=== PATIENT | female | born 1935 | race Caucasian/White ===

== ENCOUNTER 2017-11-07 08:51 | Emergency (ER) | payer OTHER, BC ==
--- NOTE | 2017-11-07 10:52 | ER ---
Nurse's Notes [facility] Name: Shelley Connor Age: 82 yrs Sex: Female : 1935 Arrival Date: 11/07/2017 Time: 08:55 Bed 14 Private MD: Иван James T Diagnosis: Contusion of left foot Presentation: 11/07 09:11 Presenting complaint: Patient states: left foot swelling and pain x 10 days. Pt reports sv pain started after getting a new recliner and having to push down the foot part down so many times. Transition of care: patient was not received from another setting of care. Onset of symptoms was October 28, 2017. Risk Assessment: Do you want to hurt yourself or someone else? Patient reports no desire to harm self or others. Care prior to arrival: None. 09:11 Method Of Arrival: Ambulatory sv 09:11 Acuity: YANIRA 4 sv 09:20 Initial Sepsis Screen: Does the patient meet any 2 criteria? No. Patient's initial rb1 sepsis screen is negative. Does the patient have a suspected source of infection? No. Patient's initial sepsis screen is negative. Triage Assessment: 09:11 General: Appears in no apparent distress. comfortable, Behavior is calm, cooperative, sv appropriate for age. Pain: Complains of pain in left foot Pain currently is 7 out of 10 on a pain scale. Pain began 10 days ago. EENT: No signs and/or symptoms were reported regarding the EENT system. Neuro: Level of Consciousness is awake, alert, obeys commands, Oriented to person, place, time, situation, Moves all extremities. Full function Gait is steady. Respiratory: Respiratory effort is even, unlabored, Respiratory pattern is regular, symmetrical. GI: No signs and/or symptoms were reported involving the gastrointestinal system. : No signs and/or symptoms were reported regarding the genitourinary system. Derm: Skin is normal. Musculoskeletal: Range of motion: intact in all extremities, Reports pain in left foot. Historical: - Allergies: : No Known Allergies; sv - Home Meds: : metoprolol succinate 25 mg oral Tb24 1 tab once daily [Active]; Bumetanide 10 mg daily sv Oral [Active]; Xarelto 20 mg oral tab 1 tab once daily [Active]; lovastatin 20 mg Oral tab 1 tab once daily [Active]; fenofibrate oral 145 mg daily oral [Active]; Synthroid 75 mcg Oral tab 1 tab once daily [Active]; - PMHx: 09:23 Hypertension; LLE DVT; sv - PSHx: :23 garfield filter in left leg; sv - Immunization history:: Adult Immunizations up to date. - Social history:: Smoking status: Patient/guardian denies using tobacco. - Ebola Screening: : No symptoms or risks identified at this time. Screenin:20 Abuse screen: Denies threats or abuse. Nutritional screening: No deficits noted. rb1 Tuberculosis screening: No symptoms or risk factors identified. Fall Risk None identified. Assessment: 09:20 General: Appears in no apparent distress. comfortable, Behavior is calm, cooperative. rb1 09:20 Pain: Complains of pain in left foot Pain currently is 5 out of 10 on a pain scale. rb1 Pain began x 10 days Aggravated by weight bearing. Neuro: Level of Consciousness is awake, alert, obeys commands, Oriented to person, place, time, situation. Cardiovascular: Capillary refill < 3 seconds is brisk in bilateral fingers. Respiratory: Airway is patent Respiratory effort is even, unlabored, Respiratory pattern is regular, symmetrical. GI: No signs and/or symptoms were reported involving the gastrointestinal system. : No signs and/or symptoms were reported regarding the genitourinary system. Derm: Skin is pink, warm \T\ dry. Musculoskeletal: Swelling present in left foot. 10:03 Reassessment: Patient appears in no apparent distress at this time. No changes from rb1 previously documented assessment. Daughter at bedside. 10:33 Reassessment: pt. ambulated to the restroom without difficulty. rb1 11:00 Reassessment: Patient appears in no apparent distress at this time. Patient and/or rb1 family updated on plan of care and expected duration. Pain level reassessed. Patient is alert, oriented x 3, equal unlabored respirations, skin warm/dry/pink. Vital Signs: 09:11 BP 175 / 87; Pulse 71; Resp 18; Temp 97.9; Pulse Ox 99% ; Weight 58.97 kg; Height 5 ft. sv 2 in. (157.48 cm); Pain 7/10; 10:03 BP 159 / 81; Pulse 65; Resp 17; Pulse Ox 95% on R/A; rb1 11:00 BP 162 / 83; Pulse 62; Resp 19; Pulse Ox 98% on R/A; rb1 09:11 Body Mass Index 23.78 (58.97 kg, 157.48 cm) ED Course: 08:55 Patient arrived in ED. rg4 08:55 Иван James MD is Private Physician. rg4 09:11 Arm band placed on right wrist. Patient placed in an exam room, on a stretcher. sv 09:20 Patient has correct armband on for positive identification. Bed in low position. Call rb1 light in reach. Side rails up X 1. Pulse ox on. NIBP on. Warm blanket given. 09:21 Triage completed. sv 09:27 Mae Martines, RN is Primary Nurse. rb1 09:27 Gael Swain PA is PHCP. jr8 09:27 Marck Rodriguez MD is Attending Physician. jr8 10:52 Chong Brantley DPM is Referral Physician. jr8 10:54 XRAY Foot LEFT 3 View In Process Unspecified. EDMS 11:05 No provider procedures requiring assistance completed. Patient did not have IV access rb1 during this emergency room visit. Administered Medications: No medications were administered Output: 10:33 Urine: 1ml (Voided); Total: 1ml. rb1 Outcome: 10:52 Discharge ordered by . jr8 11:05 Discharged to home ambulatory, with family. rb1 11:05 Condition: stable 11:05 Discharge instructions given to patient, Instructed on discharge instructions, follow up and referral plans. Demonstrated understanding of instructions, follow-up care, Prescriptions given X none 11:07 Patient left the ED. rb1 Signatures: Dispatcher [employer] EDMS Asha Blandon, RN RN Gael Swain PA PA jr8 Mae Martines, RN RN rb1 Surekha Diaz rg4
--- NOTE | 2017-11-07 10:52 | EDPHYS ---
Physician Documentation [facility] Name: Shelley Connor Age: 82 yrs Sex: Female : 1935 Arrival Date: 11/07/2017 Time: 08:55 Bed 14 Private MD: Иван James T ED Physician Marck Rodriguez HPI: 11/07 10:22 This 82 yrs old Female presents to ER via Ambulatory with complaints of Foot jr8 pain. 10:22 The patient presents with pain, swelling, tenderness. The complaints affect the left jr8 foot. Onset: The symptoms/episode began/occurred gradually, 1 week(s) ago. Modifying factors: The symptoms are alleviated by nothing, the symptoms are aggravated by movement. Associated signs and symptoms: The patient has no apparent associated signs or symptoms. Severity of symptoms: At their worst the symptoms were mild, in the emergency department the symptoms are unchanged. The patient has not experienced similar symptoms in the past. The patient has not recently seen a physician. Patient stated that she was trying to get out of recliner. Was pushing down on seat and could not get it down. Was straining with her feet to push the seat down. Since then has had left foot pain. Has not gone away after 1 week . Historical: - Allergies: 09:23 No Known Allergies; sv - Home Meds: 09:23 metoprolol succinate 25 mg oral Tb24 1 tab once daily [Active]; Bumetanide 10 mg daily sv Oral [Active]; Xarelto 20 mg oral tab 1 tab once daily [Active]; lovastatin 20 mg Oral tab 1 tab once daily [Active]; fenofibrate oral 145 mg daily oral [Active]; Synthroid 75 mcg Oral tab 1 tab once daily [Active]; - PMHx: 09:23 Hypertension; LLE DVT; sv - PSHx: 09:23 garfield filter in left leg; sv - Immunization history:: Adult Immunizations up to date. - Social history:: Smoking status: Patient/guardian denies using tobacco. - Ebola Screening: : No symptoms or risks identified at this time. ROS: 10:22 Eyes: Negative for injury, pain, redness, and discharge, ENT: Negative for injury, jr8 pain, and discharge, Neck: Negative for injury, pain, and swelling, Cardiovascular: Negative for chest pain, palpitations, and edema, Respiratory: Negative for shortness of breath, cough, wheezing, and pleuritic chest pain, Abdomen/GI: Negative for abdominal pain, nausea, vomiting, diarrhea, and constipation, Back: Negative for injury and pain, Skin: Negative for injury, rash, and discoloration, Neuro: Negative for headache, weakness, numbness, tingling, and seizure. 10:22 MS/extremity: Positive for pain, swelling, tenderness, of the left foot. Exam: 10:22 Cardiovascular: Regular rate and rhythm with a normal S1 and S2. No gallops, murmurs, jr8 or rubs. Normal PMI, no JVD. No pulse deficits. Respiratory: Lungs have equal breath sounds bilaterally, clear to auscultation and percussion. No rales, rhonchi or wheezes noted. No increased work of breathing, no retractions or nasal flaring. Skin: Warm, dry with normal turgor. Normal color with no rashes, no lesions, and no evidence of cellulitis. Neuro: Awake and alert, GCS 15, oriented to person, place, time, and situation. Cranial nerves II-XII grossly intact. Motor strength 5/5 in all extremities. Sensory grossly intact. Cerebellar exam normal. Normal gait. 10:22 Musculoskeletal/extremity: Extremities: grossly normal except: noted in the left foot: Pain and tenderness to dorsum of foot. Mild swelling. , ROM: intact in all extremities, Circulation is intact in all extremities. Sensation intact. Vital Signs: 09:11 BP 175 / 87; Pulse 71; Resp 18; Temp 97.9; Pulse Ox 99% ; Weight 58.97 kg; Height 5 ft. sv 2 in. (157.48 cm); Pain 7/10; 10:03 BP 159 / 81; Pulse 65; Resp 17; Pulse Ox 95% on R/A; rb1 11:00 BP 162 / 83; Pulse 62; Resp 19; Pulse Ox 98% on R/A; rb1 09:11 Body Mass Index 23.78 (58.97 kg, 157.48 cm) sv MDM: 09:27 Patient medically screened. jr8 10:51 Data reviewed: vital signs, nurses notes, radiologic studies, plain films, and as a jr8 result, I will discharge patient. Data interpreted: Pulse oximetry: on room air is 95 %. Interpretation: normal. Counseling: I had a detailed discussion with the patient and/or guardian regarding: the historical points, exam findings, and any diagnostic results supporting the discharge/admit diagnosis, radiology results, the need for outpatient follow up, a ekg monitor tech, to return to the emergency department if symptoms worsen or persist or if there are any questions or concerns that arise at home. 11/07 09:50 Order name: XRAY Foot LEFT 3 View jr8 Administered Medications: No medications were administered Disposition: 11/08 06:46 Co-signature as Attending Physician, Marck Rodriguez MD I agree with the assessment and nicholas plan of care. PA/BLENDER LABORER's history reviewed, patient interviewed, and examined. Disposition: 11/07/17 10:52 Discharged to Home. Impression: Contusion of left foot. - Condition is Stable. - Discharge Instructions: Foot Contusion. - Medication Reconciliation Form, Thank You Letter, Antibiotic Education, Prescription Opioid Use form. - Follow up: Chong Brantley DPM; When: 1 week; Reason: Recheck today's complaints, Continuance of care, Re-evaluation by your physician. - Problem is new. - Symptoms have improved. Signatures: Dispatcher [employer] EDAsha Petty, RN RN Marck Ewing MD MD cha Roszak, Josh, PA PA jr8 Mae Martines, RN RN rb1 Corrections: (The following items were deleted from the chart) 11/07 11:07 10:52 11/07/2017 10:52 Discharged to Home. Impression: Contusion of left foot. rb1 Condition is Stable. Forms are Medication Reconciliation Form, Thank You Letter, Antibiotic Education, Prescription Opioid Use. Follow up: Chong Brantley; When: 1 week; Reason: Recheck today's complaints, Continuance of care, Re-evaluation by your physician. Problem is new. Symptoms have improved. jr8
--- NOTE | 2017-11-07 11:13 | RAD REPORT ---
EXAM DESCRIPTION: RAD - Foot Left 3 View - 11/07/2017 10:54 am CLINICAL HISTORY: Left foot pain and swelling for 10 days, patient reports foot pain following repet itive activity COMPARISON: None. FINDINGS: No fracture, dislocation or periosteal reaction. No acute or destructive bony process. IP joint space narrowing without erosive or destructive component. Minimal fifth MTP joint space narrow ing. Patient has mild to moderate first MTP joint space narrowing without spurring or erosive compone nt. There is a mild bunion deformity. No air or foreign body in the soft tissues. IMPRESSION: Degenerative changes are present to the foot. Change is not severe but most notable at t he first MTP joint.
== END 2017-11-07 11:07 | disposition home or self-care (01) ==
LOC: ER 08:51
DX: S90.32XA Contusion of left foot, initial encounter (principal); I10 Essential (primary) hypertension; X58.XXXA Exposure to other specified factors, initial encounter; Y93.89 Activity, other specified; Y92.89 Other specified places as the place of occurrence of the external cause; Y99.9 Unspecified external cause status; Z86.718 Personal history of other venous thrombosis and embolism
CPT/HCPCS: 99283

== ENCOUNTER → 2023-08-09 | Emergency (ER) | payer BC, OTHER ==
[~2023-08-09] MED LIST: CEFTRIAXONE 1000 MG/VIAL ONE; CIPROFLOXACIN HCL 500 MG TAB ONE; DIAZEPAM 5 MG TABLET ONE; FENTANYL CITR 100 MCG/2 ML ONE; NA CHLORIDE 0.9% 500 ML ONE; ONDANSETRON 4 MG/2 ML VIAL ONE; SMZ./TMP. 800/160 MG TABLET ONE; dexAMETHasone 10 MG/ML VIAL ONE
[2023-08-09 11:12] LABS: Absolute Basophils 0.1 K/uL (0-0.5); Absolute Eosinophils 0.3 K/uL (0-0.5); Absolute Lymphocytes (CBC) 1.4 K/uL (0.7-4.9); Absolute Monocytes 0.6 K/uL (0.1-1.3); Basophils % 0.8 % (0-1.3); Eosinophils % 3.2 % (0-4.4); Hematocrit 39.1 % (36.0-45.0); Hemoglobin 12.9 g/dL (12.0-15.0); Lymphocytes % 16.5 % (15.3-44.8); MCH 30.9 pg (27.0-35.0); MCHC 33.1 g/dL (32.0-36.0); MCV 93.2 fL (80-100); MPV 7.9 fL (7.6-11.3); Neutrophils % 72.5 % (41.7-73.7); Platelets 404 thou/uL (152-406); Red Cell Distribution Width 14.2 % (12.1-15.2)
[2023-08-09 11:22] LABS: Albumin 3.6 g/dL (3.4-5.0); Albumin/Globulin Ratio 0.8 (1.1-1.8); Anion Gap 8.9 mEq/L (5.0-15.0); Bilirubin Total 0.5 mg/dL (0.2-1.0); Globulin 4.7 g/dL (2.3-3.5); Potassium 3.9 mEq/L (3.5-5.1); Protein, Total 8.3 g/dL (6.4-8.2)
[2023-08-09 13:28] LABS: Specific Gravity 1.013 (1.005-1.030); Sqamous Epithelial <5 /HPF (None Seen); Urine Bacteria None Seen /HPF (<20); Urine Bilirubin NEGATIVE (Negative); Urine Blood Negative (Negative); Urine Clarity Extremely Turbid (Clear); Urine Color Light-Yellow (Yellow); Urine Culture Reflex Order NOT NEEDED; Urine Glucose NEGATIVE (Negative); Urine Ketones NEGATIVE (Negative); Urine Microscopic Reflex YN ORDER UMIC; Urine Mucus Slight /HPF (None Seen); Urine Nitrite NEGATIVE (Negative); Urine Protein NEGATIVE (Negative); Urine RBC <5 /HPF (None Seen); Urine Urobilinogen Normal (Normal); Urine WBC <5 /HPF (<5)
--- NOTE | 2023-08-09 13:41 | RAD REPORT ---
EXAM DESCRIPTION: CT - Chest Abdomen Pelvis W Cont - 08/09/2023 1:16 pm CLINICAL HISTORY: Chest and abdominal pain status post fall Chest and abdominal pain. Back pain COMPARISON: none TECHNIQUE: Computed axial tomography of the chest, abdomen and pelvis was obtained. 100 cc Isovue-30 0 was administered intravenously. Oral contrast was not requested. This limits evaluation of bowel. All CT scans are performed using dose optimization technique as appropriate and may include automated exposure control or mA/KV adjustment according to patient size. FINDINGS: A pleural effusion is not present. No pericardial effusion A pulmonary contusion is not seen. Mild chronic appearing bibasilar lung opacities. Calcified granuloma right lung. A mediastinal hematoma is not present. The liver, spleen, pancreas, adrenals kidneys and bladder do not demonstrate a traumatic injury 2.3 centimeter right adrenal mass Hounsfield unit 46. A 2.6 centimeter cystic mass pancreatic body IVC filter in place Mild insufficiency sacral fractures Air within the bladder. small right diaphragmatic hernia IMPRESSION: No acute traumatic injury involving the chest, abdomen nor pelvis is seen. 2.3 centimeter right adrenal mass. Nonemergent MRI recommended to help determine if this represents a n adenoma 2.6 centimeter cystic mass pancreatic body may represent intraductal papillary mucinous neoplasm or p seudocyst. Nonemergent MRI recommended Mild insufficiency sacral fractures Air within the bladder may be secondary to prior instrumentation or infection
--- NOTE | 2023-08-09 14:43 | ER ---
Nurse's Notes [facility] Name: Shelley Connor Age: 87 yrs Sex: Female : 1935 Arrival Date: 08/09/2023 Time: 09:33 Bed 12 Private MD: Diagnosis: Low back pain;Sciatica;UTI/ Urinary tract infection, site not specified;Abnormal findings on diagnostic imaging of other specified body structures-2.3 cm right adrenal mass, 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;Fracture of sacrum-MILD INSUFFIENT FRACTURES Presentation: 08/08 10:15 Chief complaint: [place] and heard a pop in lower back when she bent over 9 days ago, c/o hb low back pain 02/21. Coronavirus screen: At this time, the client does not indicate any symptoms associated with coronavirus-19. Ebola Screen: No symptoms or risks identified at this time. Initial Sepsis Screen: Does the patient meet any 2 criteria? No. Patient's initial sepsis screen is negative. Does the patient have a suspected source of infection? No. Patient's initial sepsis screen is negative. Risk Assessment: Do you want to hurt yourself or someone else? Patient reports no desire to harm self or others. Onset of symptoms was July 31, 2023. 10:15 Method Of Arrival: Wheelchair hb 10:15 Acuity: YANIRA 3 hb Triage Assessment: 10:20 General: Appears in no apparent distress. Behavior is calm, cooperative. Pain: Pain hb currently is 10 out of 10 on a pain scale. Neuro: Level of Consciousness is awake, alert, obeys commands, Oriented to person, place, time, situation. Cardiovascular: Patient's skin is warm and dry. Respiratory: Respiratory effort is even, unlabored, Respiratory pattern is regular, symmetrical. Musculoskeletal: Reports low back pain 02/21. Historical: - Allergies: 10:17 No Known Allergies; hb - Home Meds: 10:17 Xarelto 20 mg Oral tab 1 tab once daily [Active]; Synthroid 75 mcg Oral tab 1 tab once hb daily [Active]; metoprolol succinate 25 mg Oral Tb24 1 tab once daily [Active]; lovastatin 20 mg Oral tab 1 tab once daily [Active]; fenofibrate 145 mg daily Oral [Active]; Bumetanide 10 mg daily Oral [Active]; Ambien Oral [Active]; - PMHx: 10:17 Hypertension; LLE DVT; hb - PSHx: 10:17 Wrist - Right; Hysterectomy; Appendectomy; hb - Immunization history:: Client reports receiving the 2nd dose of the Covid vaccine, Flu vaccine is up to date. - Social history:: Smoking status: Patient denies any tobacco usage or history of. Screenin:44 [facility] ED Fall Risk Assessment (Adult) History of falling in the last 3 months, jl7 including since admission Yes- single mechanical fall (1 pt) Confusion or Disorientation No (0 pts) Intoxicated or Sedated No (0 pts) Impaired Gait No (0 pts) Mobility Assist Device Used Yes (1 pt) Altered Elimination No (0 pt) Score/Fall Risk Level 0 - 2 = Low Risk Oriented to surroundings, Maintained a safe environment, Assessed \T\ reinforced patient's understanding of fall precautions, Hourly rounding (assess needs \T\ fall precautionary measures) done. Abuse screen: Denies threats or abuse. Denies injuries from another. Nutritional screening: No deficits noted. Tuberculosis screening: No symptoms or risk factors identified. Assessment: 11:30 General: Appears in no apparent distress. uncomfortable, Behavior is calm, cooperative, jl7 appropriate for age. Pain: Complains of pain in low back area Pain currently is 20 out of 10 on a pain scale. Pain began Is continuous. Neuro: Level of Consciousness is awake, alert, obeys commands, Oriented to person, place, time, situation. Cardiovascular: Patient's skin is warm and dry. Respiratory: Airway is patent Respiratory effort is even, unlabored, Respiratory pattern is regular, symmetrical. Derm: Skin is pink, warm \T\ dry. Musculoskeletal: Swelling absent Reports pain in low back area. 12:15 Reassessment: Report given to KESHIA Villavicencio. jl7 13:14 General: Appears uncomfortable, well groomed, well developed, well nourished, Behavior me1 is calm, cooperative, appropriate for age, Reports bent over and felt and heard a pop in her back 9 days ago. Has had pain since. Pain: Complains of pain in back Pain does not radiate. Pain currently is 8 out of 10 on a pain scale. Quality of pain is described as aching, sharp, Pain began suddenly, Is continuous. Neuro: Level of Consciousness is awake, alert, obeys commands, Oriented to person, place, time, situation, Appropriate for age. Cardiovascular: Patient's skin is warm and dry. Respiratory: Airway is patent Respiratory effort is even, unlabored, Respiratory pattern is regular, symmetrical. GI: No deficits noted. : No deficits noted. EENT: No deficits noted. Derm: Skin is intact, is healthy with good turgor, Skin is pink, warm \T\ dry. Musculoskeletal: Reports pain in back. Vital Signs: 10:15 BP 167 / 98; Pulse 83; Resp 16; Temp 97.1(TE); Pulse Ox 100% on R/A; Weight 54.43 kg; hb Height 5 ft. 2 in. ; Pain 10/10; 11:42 BP 178 / 85; Pulse 85; Resp 15; Pulse Ox 100% ; Pain 10/10; jl7 13:00 BP 165 / 78; Pulse 84; Resp 16; Pulse Ox 100% on R/A; Pain 6/10; me1 13:00 BP 149 / 68; Pulse 71; Resp 14; Temp 98.5(O); Pulse Ox 100% ; Pain 3/10; me1 10:15 Body Mass Index 21.95 (54.43 kg, 157.48 cm) hb 10:15 Pain Scale: Adult hb 11:42 Pain Scale: Adult jl7 13:00 Pain Scale: Adult me1 13:00 Pain Scale: Adult me1 [place] Coma Score: 14:29 Eye Response: spontaneous(4). Motor Response: obeys commands(6). Verbal Response: nicholas oriented(5). Total: 15. ED Course: 09:35 Patient arrived in ED. rg4 09:56 Marck Rodriguez MD is Attending Physician. nicholas 10:17 Triage completed. hb 10:20 Arm band placed on. hb 11:00 Initial lab(s) drawn, by ED staff, sent to lab. Inserted saline lock: 20 gauge in right jl7 antecubital area, using aseptic technique. Blood collected. 11:44 Patient has correct armband on for positive identification. Bed in low position. Call jl7 light in reach. Side rails up X2. Provided Education on: use of callbell. Pulse ox on. NIBP on. Warm blanket given. 11:52 Maye Chiu RN is Primary Nurse. me1 13:12 Urinalysis w/ reflexes Sent. me1 13:16 No provider procedures requiring assistance completed. me1 13:18 Chest Abdomen Pelvis W Cont In Process Unspecified. EDMS 15:44 IV discontinued, intact, bleeding controlled, No redness/swelling at site. Pressure me1 dressing applied. Administered Medications: 11:41 Drug: fentaNYL (PF) IVP 25 mcg IVP once Route: IVP; Site: right antecubital; 7 13:13 Follow up: Response: No adverse reaction; Pain is decreased me1 11:41 Drug: Ondansetron IVP 4 mg IVP once; over 2 minutes Route: IVP; Site: right antecubital;7 13:12 Follow up: Response: No adverse reaction; Nausea is decreased me1 11:41 Drug: Decadron - Dexamethasone IVP 10 mg IVP once Route: IVP; Site: right antecubital; 7 13:12 Follow up: Response: No adverse reaction me1 11:42 Drug: NS 0.9% IV 500 ml IV at bolus once Route: IV; Rate: bolus; Site: right jl7 antecubital; 15:45 Follow up: Response: No adverse reaction; IV Status: Completed infusion; IV Intake: me1 500ml 11:42 Drug: Diazepam PO 10 mg PO once Route: PO; 7 13:13 Follow up: Response: Anxiety decreased me1 14:42 Drug: fentaNYL (PF) IVP 25 mcg IVP once Route: IVP; Site: right antecubital; me1 15:01 Follow up: Response: No adverse reaction; Pain is decreased me1 14:42 Drug: Rocephin IV 1 grams IV at per protocol once; Given slow IV push per pharmacy me1 instructions Route: IV; Rate: per protocol; Site: right antecubital; 15:01 Follow up: Response: No adverse reaction; IV Status: Completed infusion me1 14:42 Drug: Trimethoprim-Sulfamethoxazole PO (160 mg-800 mg (DS) 1 tablet PO once Route: PO; me1 15:01 Follow up: Response: No adverse reaction me1 15:01 Follow up: Response: No adverse reaction me1 14:42 Drug: Ciprofloxacin PO 250 mg PO once Route: PO; me1 15:01 Follow up: Response: No adverse reaction me1 15:00 Not Given (pain well managed with previous dose.): fentanyl (pf)25 mcg IVP once me1 Medication: 11:44 VIS not applicable for this client. jl7 Intake: 15:45 IV: 500ml; Total: 500ml. me1 Outcome: 14:42 Discharge ordered by . nicholas 15:44 Discharged to home via wheelchair, with family, me1 15:44 Condition: stable 15:44 Discharge instructions given to patient, family, Instructed on discharge instructions, follow up and referral plans. medication usage, Demonstrated understanding of instructions, follow-up care, medications, Prescriptions given X 5 15:45 Patient left the ED. me1 Signatures: Dispatcher [employer] EDMarck Manning MD MD cha Baxter, Heather, RN RN Surekha Monet rg4 Elvia Woodard RN RN jl7 Maye Chiu RN RN me1 Corrections: (The following items were deleted from the chart) 10:20 10:17 PSHx: appendix; [facility] 08/09 10:08 03 11:30 Pain: Complains of pain in low back area Pain currently is 20 out of 10 on jl7 a pain scale. Pain began 2-3 days ago. Is continuous, jl7
--- NOTE | 2023-08-09 14:43 | EDPHYS ---
Physician Documentation [facility] Name: Shelley Connor Age: 87 yrs Sex: Female : 1935 Arrival Date: 08/09/2023 Time: 09:33 Bed 12 Private MD: FITZ Physician Marck Rodriguez HPI: 08/08 14:29 This 87 yrs old Female presents to ER via Wheelchair with complaints of Back Pain, Leg nicholas Pain. 14:29 The patient presents with pain that is acute. The symptoms are located in the low back. nicholas Onset: The symptoms/episode began/occurred 1 week(s) ago. The pain radiates to the left low back and right low back. Associated signs and symptoms: Pertinent positives: leg pain. The problem was sustained when bending over. Modifying factors: The patient symptoms are alleviated by nothing, remaining still, the patient symptoms are aggravated by any movement, bending. Severity of symptoms: At their worst the symptoms were mild, in the emergency department the symptoms are unchanged. The patient has experienced similar episodes in the past, a few times. Historical: - Allergies: 10:17 No Known Allergies; hb - Home Meds: 10:17 Xarelto 20 mg Oral tab 1 tab once daily [Active]; Synthroid 75 mcg Oral tab 1 tab once hb daily [Active]; metoprolol succinate 25 mg Oral Tb24 1 tab once daily [Active]; lovastatin 20 mg Oral tab 1 tab once daily [Active]; fenofibrate 145 mg daily Oral [Active]; Bumetanide 10 mg daily Oral [Active]; Ambien Oral [Active]; - PMHx: 10:17 Hypertension; LLE DVT; hb - PSHx: 10:17 Wrist - Right; Hysterectomy; Appendectomy; hb - Immunization history:: Client reports receiving the 2nd dose of the Covid vaccine, Flu vaccine is up to date. - Social history:: Smoking status: Patient denies any tobacco usage or history of. ROS: 14:29 Constitutional: Negative for fever, chills, and weight loss, Eyes: Negative for injury, nicholas pain, redness, and discharge, ENT: Negative for injury, pain, and discharge, Neck: Negative for injury, pain, and swelling, Cardiovascular: Negative for chest pain, palpitations, and edema, Respiratory: Negative for shortness of breath, cough, wheezing, and pleuritic chest pain, Abdomen/GI: Negative for abdominal pain, nausea, vomiting, diarrhea, and constipation, : Negative for injury, bleeding, discharge, and swelling, MS/Extremity: Negative for injury and deformity, Skin: Negative for injury, rash, and discoloration, Neuro: Negative for headache, weakness, numbness, tingling, and seizure, Psych: Negative for depression, anxiety, suicide ideation, homicidal ideation, and hallucinations, Allergy/Immunology: Negative for hives, rash, and allergies, Endocrine: Negative for neck swelling, polydipsia, polyuria, polyphagia, and marked weight changes, Hematologic/Lymphatic: Negative for swollen nodes, abnormal bleeding, and unusual bruising, 14:29 Back: Positive for injury or acute deformity, decreased range of motion, pain at rest, pain with movement, Exam: 14:29 Constitutional: This is a well developed, well nourished patient who is awake, alert, nicholas and in no acute distress. Head/Face: Normocephalic, atraumatic. Eyes: Pupils equal round and reactive to light, extra-ocular motions intact. Lids and lashes normal. Conjunctiva and sclera are non-icteric and not injected. Cornea within normal limits. Periorbital areas with no swelling, redness, or edema. ENT: Nares patent. No nasal discharge, no septal abnormalities noted. Tympanic membranes are normal and external auditory canals are clear. Oropharynx with no redness, swelling, or masses, exudates, or evidence of obstruction, uvula midline. Mucous membranes moist. Neck: Trachea midline, no thyromegaly or masses palpated, and no cervical lymphadenopathy. Supple, full range of motion without nuchal rigidity, or vertebral point tenderness. No Meningismus. Chest/axilla: Normal chest wall appearance and motion. Nontender with no deformity. No lesions are appreciated. Cardiovascular: Regular rate and rhythm with a normal S1 and S2. No gallops, murmurs, or rubs. Normal PMI, no JVD. No pulse deficits. Respiratory: Lungs have equal breath sounds bilaterally, clear to auscultation and percussion. No rales, rhonchi or wheezes noted. No increased work of breathing, no retractions or nasal flaring. Abdomen/GI: Soft, non-tender, with normal bowel sounds. No distension or tympany. No guarding or rebound. No evidence of tenderness throughout. Female : Normal external genitalia. Skin: Warm, dry with normal turgor. Normal color with no rashes, no lesions, and no evidence of cellulitis. MS/ Extremity: Pulses equal, no cyanosis. Neurovascular intact. Full, normal range of motion. Neuro: Awake and alert, GCS 15, oriented to person, place, time, and situation. Cranial nerves II-XII grossly intact. Motor strength 5/5 in all extremities. Sensory grossly intact. Cerebellar exam normal. Normal gait. Psych: Awake, alert, with orientation to person, place and time. Behavior, mood, and affect are within normal limits. 14:29 Back: pain, that is moderate, ROM is normal, normal spinal alignment noted, CVA tenderness, is absent, muscle spasm, is appreciated in the left low back, left mid back, right mid back and right low back, Vital Signs: 10:15 BP 167 / 98; Pulse 83; Resp 16; Temp 97.1(TE); Pulse Ox 100% on R/A; Weight 54.43 kg; hb Height 5 ft. 2 in. ; Pain 10/10; 11:42 BP 178 / 85; Pulse 85; Resp 15; Pulse Ox 100% ; Pain 10/10; jl7 13:00 BP 165 / 78; Pulse 84; Resp 16; Pulse Ox 100% on R/A; Pain 6/10; me1 13:00 BP 149 / 68; Pulse 71; Resp 14; Temp 98.5(O); Pulse Ox 100% ; Pain 3/10; me1 10:15 Body Mass Index 21.95 (54.43 kg, 157.48 cm) hb 10:15 Pain Scale: Adult hb 11:42 Pain Scale: Adult jl7 13:00 Pain Scale: Adult me1 13:00 Pain Scale: Adult me1 Ro Coma Score: 14:29 Eye Response: spontaneous(4). Motor Response: obeys commands(6). Verbal Response: nicholas oriented(5). Total: 15. MDM: 09:56 Patient medically screened. nicholas 14:35 Differential diagnosis: chronic back pain, Fatigue Fracture Joint Injury Obesity nicholas ruptured disc, spinal injury, Ureterolithiasis vertebral fracture. Data reviewed: vital signs, nurses notes, lab test result(s), radiologic studies, CT scan, plain films. Consideration of Admission/Observation Escalation of care including admission/observation considered. I considered the following discharge prescriptions or medication management in the emergency department Medications were administered in the Emergency Department. See MAR. Independent interpretation of the following test(s) in the Emergency Department CT Scan: My interpretation is ct lumbar. Test considered but Not performed: MRI: no spinal mri. 08/08 10:28 Order name: CBC with Diff; Complete Time: 13:56 [facility] 08/08 10:28 Order name: Comprehensive Metabolic Panel; Complete Time: 13:56 [facility] 08/08 10:28 Order name: Urinalysis w/ reflexes; Complete Time: 13:56 [facility] 08/08 13:58 Order name: Urine Culture [facility] 08/08 13:05 Order name: Chest Abdomen Pelvis W Cont; Complete Time: 13:56 EDMS Administered Medications: 11:41 Drug: fentaNYL (PF) IVP 25 mcg IVP once Route: IVP; Site: right antecubital; jl7 13:13 Follow up: Response: No adverse reaction; Pain is decreased me1 11:41 Drug: Ondansetron IVP 4 mg IVP once; over 2 minutes Route: IVP; Site: right antecubital;jl7 13:12 Follow up: Response: No adverse reaction; Nausea is decreased me1 11:41 Drug: Decadron - Dexamethasone IVP 10 mg IVP once Route: IVP; Site: right antecubital; jl7 13:12 Follow up: Response: No adverse reaction me1 11:42 Drug: NS 0.9% IV 500 ml IV at bolus once Route: IV; Rate: bolus; Site: right jl7 antecubital; 15:45 Follow up: Response: No adverse reaction; IV Status: Completed infusion; IV Intake: me1 500ml 11:42 Drug: Diazepam PO 10 mg PO once Route: PO; jl7 13:13 Follow up: Response: Anxiety decreased me1 14:42 Drug: fentaNYL (PF) IVP 25 mcg IVP once Route: IVP; Site: right antecubital; me1 15:01 Follow up: Response: No adverse reaction; Pain is decreased me1 14:42 Drug: Rocephin IV 1 grams IV at per protocol once; Given slow IV push per pharmacy me1 instructions Route: IV; Rate: per protocol; Site: right antecubital; 15:01 Follow up: Response: No adverse reaction; IV Status: Completed infusion me1 14:42 Drug: Trimethoprim-Sulfamethoxazole PO (160 mg-800 mg (DS) 1 tablet PO once Route: PO; me1 15:01 Follow up: Response: No adverse reaction me1 15:01 Follow up: Response: No adverse reaction me1 14:42 Drug: Ciprofloxacin PO 250 mg PO once Route: PO; me1 15:01 Follow up: Response: No adverse reaction me1 15:00 Not Given (pain well managed with previous dose.): fentanyl (pf)25 mcg IVP once me1 Disposition Summary: 08/09/23 14:42 Discharge Ordered Notes: Location: Home nicholas Problem: new nicholas Symptoms: have improved nicholas Condition: Stable nicholas Diagnosis - Low back pain nicholas - Sciatica nicholas - UTI/ Urinary tract infection, site not specified nicholas - Abnormal findings on diagnostic imaging of other specified body structures - 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, 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 - Fracture of sacrum - MILD INSUFFIENT FRACTURES nicholas Followup: nicholas - With: Private Physician - When: 2 - 3 days - Reason: Recheck today's complaints, Continuance of care, Re-evaluation by your physician Discharge Instructions: - Discharge Summary Sheet nicholas - Musculoskeletal Pain nicholas - Sciatica nicholas - Urinary Tract Infection, Adult nicholas - Urinary Tract Infection, Adult, [id number] nicholas - Incidental Abnormal Radiological Finding nicholas - Sciatica, [id number] [facility] Forms: - Medication Reconciliation Form [facility] - Thank You Letter [facility] - Antibiotic Education nicholas - Prescription Opioid Use nicholas - Patient Portal Instructions [facility] - Leadership Thank You Letter [facility] Prescriptions: - cefdinir 300 mg Oral capsule - take 1 capsule ORAL route every 12 hours; 14 capsule; Refills: 0, Product nicholas Selection Permitted - acetaminophen-codeine 300-30 mg Oral tablet - take 1 tablet ORAL route every 4-6 hours as needed for pain; 20 tablet; nicholas Refills: 0, Product Selection Permitted - dexamethasone 2 mg Oral tablet - take 1 tablet ORAL route 2 times per day; 6 tablet; Refills: 0, Product nicholas Selection Permitted - ondansetron 4 mg Oral Tablet,disintegrating - take 1 tablet ORAL route every 6 hours as needed for nausea and vomiting; 20 nicholas tablet; Refills: 0, Product Selection Permitted - Cipro 250 mg Oral tablet - take 1 tablet ORAL route every 12 hours; 14 tablet; Refills: 0, Product nicholas Selection Permitted Signatures: Dispatcher [employer] EDMarck Manning MD MD cha Baxter, Heather, RN RN Elvia Woodard RN RN jl7 Maye Cihu RN RN me1 Corrections: (The following items were deleted from the chart) 10:20 10:17 PSHx: appendix; hb hb 13:05 12:51 Spine Lumbar Wo Con+CT.RAD.BRZ ordered. EDMS EDMS 15:24 13:58 Urine Culture+BA.LAB.BRZ ordered. EDMS EDMS
[2023-08-09 16:07] VITALS: BP 149/68; TEMP 98.5; O2SAT 100
== END ==
LOC: ER 09:33
DX: M54.30 Sciatica, unspecified side (principal); N39.0 Urinary tract infection, site not specified; R93.89 Abnormal findings on diagnostic imaging of other specified body structures; S32.19XA Other fracture of sacrum, initial encounter for closed fracture; I10 Essential (primary) hypertension; Z86.718 Personal history of other venous thrombosis and embolism; Z79.01 Long term (current) use of anticoagulants
CPT/HCPCS: 85025; 81001; 36415; 80053; 71260; 74177; Q9967; J3010 ×2; J1100; J2405; J7040; J0696; 87086; 87088

== ENCOUNTER 2023-08-12 11:12 | Emergency (ER) | payer OTHER ==
[2023-08-12] MEDS ORDERED: HYDROCODONE/APAP 5/325 MG TAB ONE (11:47)
[2023-08-12] MEDS ORDERED: DIAZEPAM 5 MG TABLET ONE (11:48)
--- NOTE | 2023-08-12 13:59 | EDPHYS ---
Physician Documentation [facility] Name: Shelley Connor Age: 87 yrs Sex: Female : 1935 Arrival Date: 08/12/2023 Time: 11:12 Bed 6 Private MD: ED Physician Oseas Ocampo HPI: 08/11 12:43 This 87 yrs old Female presents to ER via EMS with complaints of Back Pain. ms3 12:43 87-year-old female with past medical history of hypertension and left lower extremity ms3 DVT presents to the emergency department for lower back pain that began 1 week prior to arrival after doing yard work. Patient states at that time she was bent over and felt a pop in her back. Patient has been seen in the emergency department with CT performed. Patient has seen her primary care physician. Patient is currently on Tylenol 3, Flexeril, steroids. Patient states the pain is 10/10 when walking. Patient denies pain when laying still. Patient denies urinary or bowel incontinence, or urinary retention. Historical: - Allergies: 11:19 No Known Allergies; ll1 - PMHx: 11:19 Hypertension; LLE DVT; ll1 - PSHx: 11:19 Appendectomy; hysterectomy; Wrist - Right; ll1 - Immunization history:: Adult Immunizations up to date. - Social history:: Smoking status: Patient denies any tobacco usage or history of. ROS: 12:43 Constitutional: Negative for fever, and chills. Neck: Negative for injury, pain, and ms3 swelling, Cardiovascular: Negative for chest pain, and palpitations. Respiratory: Negative for shortness of breath, cough, wheezing, and pleuritic chest pain, Abdomen/GI: Negative for abdominal pain, nausea, vomiting, diarrhea, and constipation, 12:43 Back: Positive for Pain when upright, Exam: 12:43 Constitutional: This is a well developed, well nourished patient who is awake, alert, ms3 and in no acute distress. Head/Face: Normocephalic, atraumatic. Chest/axilla: Normal chest wall appearance and motion. Nontender with no deformity. Cardiovascular: Regular rate and rhythm with a normal S1 and S2. No gallops, murmurs, or rubs. Normal PMI, no JVD. No pulse deficits. Respiratory: Lungs have equal breath sounds bilaterally, clear to auscultation and percussion. No rales, rhonchi or wheezes noted. No increased work of breathing, no retractions or nasal flaring. Abdomen/GI: Soft, non-tender, with normal bowel sounds. No distension or tympany. No guarding or rebound. No evidence of tenderness throughout. Back: No spinal tenderness. No costovertebral tenderness. Full range of motion. Skin: Warm, dry with normal turgor. Normal color with no rashes, no lesions, and no evidence of cellulitis. Vital Signs: 11:17 BP 169 / 97; Pulse 82; Resp 16; Temp 97.2; Pulse Ox 97% on R/A; Weight 56.25 kg; Height em1 5 ft. 2 in. ; Pain 10/10; 13:13 BP 138 / 74; Pulse 84; Resp 16; Pulse Ox 100% on R/A; mb9 14:00 BP 140 / 72; Pulse 67; Resp 18; Pulse Ox 95% on R/A; db 11:17 Body Mass Index 22.68 (56.25 kg, 157.48 cm) em1 11:17 Pain Scale: Adult em1 MDM: 11:31 Patient medically screened. ms3 12:43 Differential diagnosis: ruptured disc, Degenerative disc disease. ms3 14:07 ED course: Problem with [facility] website and unable to view patient's profile at this time. ms3 . 14:07 Data reviewed: vital signs, nurses notes, and as a result, I will discharge patient. I ms3 considered the following discharge prescriptions or medication management in the emergency department Medications were administered in the Emergency Department. See MAR. Historians other than the Patient: Daughter/Son: Patient's daughter. Care significantly affected by the following chronic conditions: Hypertension. Counseling: I had a detailed discussion with the patient and/or guardian regarding the historical points, exam findings, and any diagnostic results supporting the discharge/admit diagnosis, the need for outpatient follow up, to return to the emergency department if symptoms worsen or persist or if there are any questions or concerns that arise at home. Special discussion: I discussed with the patient/guardian in detail that at this point there is no indication for admission to the hospital. It is understood, however, that if the symptoms persist or worsen the patient needs to return immediately for re-evaluation. 19:36 ED course: Patient's daughter states patient with CT unremarkable for back pathology on ms3 previous visit. Requesting stronger pain medications. Patient given Placida and Valium in the emergency department with improvement of symptoms. Patient given prescription for Placida 5/325 every 4 hours as needed pain #18. Patient to follow-up with her primary care physician in 2 to 3 days. Patient's daughter understands and agrees with plan. Return precautions discussed include worsening symptoms, or any other concerns. Administered Medications: 11:52 Drug: HYDROcodone-acetaminophen PO 5 mg-325 mg 1 tabs PO once Route: PO; mb9 14:29 Follow up: Response: No adverse reaction db 11:52 Drug: Diazepam PO 5 mg PO once Route: PO; mb9 14:29 Follow up: Response: No adverse reaction db Disposition Summary: 08/12/23 13:59 Discharge Ordered Notes: Location: Home ms3 Condition: Stable ms3 Diagnosis - Low back pain ms3 Followup: ms3 - With: Private Physician - When: 2 - 3 days - Reason: Recheck today's complaints Discharge Instructions: - Discharge Summary Sheet ms3 - Acute Back Pain, Adult ms3 Forms: - Medication Reconciliation Form ms3 - Thank You Letter ms3 - Antibiotic Education ms3 - Prescription Opioid Use ms3 - Patient Portal Instructions ms3 - Leadership Thank You Letter ms3 Signatures: Vipin Leiva, RN RN ll1 Oseas Ocampo DO DO ms3 Vannessa Ewing RN RN mb9 Latoya Miguel RN db
--- NOTE | 2023-08-12 13:59 | ER ---
Nurse's Notes [facility] Name: Shelley Connor Age: 87 yrs Sex: Female : 1935 Arrival Date: 08/12/2023 Time: 11:12 Bed 6 Private MD: Diagnosis: Low back pain Presentation: 08/11 11:18 Chief complaint: Patient states: Back pain continues since last visit, tylenol #3 ll1 doesn't help. EMS states: VSS. Coronavirus screen: Client denies travel out of the [place] in the last 14 days. At this time, the client does not indicate any symptoms associated with coronavirus-19. Ebola Screen: Patient denies travel to an Ebola-affected area in the 21 days before illness onset. Initial Sepsis Screen: Does the patient meet any 2 criteria? No. Patient's initial sepsis screen is negative. Does the patient have a suspected source of infection? No. Patient's initial sepsis screen is negative. Risk Assessment: Do you want to hurt yourself or someone else? Patient reports no desire to harm self or others. Onset of symptoms was August 07, 2023. 11:18 Method Of Arrival: EMS ll1 11:18 Acuity: YANIRA 4 ll1 Triage Assessment: 11:19 General: Appears uncomfortable, Behavior is calm, cooperative, appropriate for age. ll1 Pain: Complains of pain in back Pain currently is 10 out of 10 on a pain scale. Quality of pain is described as aching, Aggravated by increased activity. Musculoskeletal: Circulation, motion, and sensation intact. Capillary refill < 3 seconds, Reports pain in back. Historical: - Allergies: 11:19 No Known Allergies; ll1 - PMHx: 11:19 Hypertension; LLE DVT; ll1 - PSHx: 11:19 Appendectomy; hysterectomy; Wrist - Right; ll1 - Immunization history:: Adult Immunizations up to date. - Social history:: Smoking status: Patient denies any tobacco usage or history of. Screenin:55 [facility] ED Fall Risk Assessment (Adult) History of falling in the last 3 months, db including since admission Yes- single mechanical fall (1 pt) Confusion or Disorientation No (0 pts) Intoxicated or Sedated No (0 pts) Impaired Gait No (0 pts) Mobility Assist Device Used Yes (1 pt) Altered Elimination No (0 pt) Score/Fall Risk Level 0 - 2 = Low Risk Oriented to surroundings, Maintained a safe environment. Abuse screen: Denies threats or abuse. Denies injuries from another. Nutritional screening: No deficits noted. Tuberculosis screening: No symptoms or risk factors identified. Assessment: 11:55 Reassessment: Patient appears in no apparent distress at this time. Patient and/or db family updated on plan of care and expected duration. Pain level reassessed. Patient is alert, oriented x 3, equal unlabored respirations, skin warm/dry/pink. LOWER BACK PAIN X 1.5 WEEKS. FELT POP WHILE OUTSIDE WORKING IN GARDEN. PAIN IS WORSE WITH DIFFICULTY AMBULATING. General: Appears in no apparent distress. comfortable, Behavior is calm, cooperative. Pain: Complains of pain in buttocks and back. Neuro: Level of Consciousness is awake, alert, obeys commands, Oriented to person, place, time, situation. Respiratory: Airway is patent Respiratory effort is even, unlabored, Respiratory pattern is regular, symmetrical. Musculoskeletal: Circulation, motion, and sensation intact. Capillary refill < 3 seconds. 13:44 Reassessment: Patient appears in no apparent distress at this time. Patient and/or db family updated on plan of care and expected duration. Pain level reassessed. Patient is alert, oriented x 3, equal unlabored respirations, skin warm/dry/pink. PATIENT ASSISTED TO SITTING UP AND STANDING AND SITTING IN WHEELCHAIR. 14:00 Reassessment: Patient appears in no apparent distress at this time. Patient and/or db family updated on plan of care and expected duration. Pain level reassessed. Patient is alert, oriented x 3, equal unlabored respirations, skin warm/dry/pink. Vital Signs: 11:17 BP 169 / 97; Pulse 82; Resp 16; Temp 97.2; Pulse Ox 97% on R/A; Weight 56.25 kg; Height em1 5 ft. 2 in. ; Pain 10/10; 13:13 BP 138 / 74; Pulse 84; Resp 16; Pulse Ox 100% on R/A; mb9 14:00 BP 140 / 72; Pulse 67; Resp 18; Pulse Ox 95% on R/A; db 11:17 Body Mass Index 22.68 (56.25 kg, 157.48 cm) em1 11:17 Pain Scale: Adult em1 ED Course: 11:15 Patient arrived in ED. eb 11:19 Triage completed. ll1 11:19 Arm band placed on Patient placed in an exam room, on a stretcher. ll1 11:31 Oseas Ocampo DO is Attending Physician. ms3 11:52 Latoya Miguel, RN is Primary Nurse. db 11:55 Patient has correct armband on for positive identification. Bed in low position. Call db light in reach. Side rails up X 1. Pulse ox on. NIBP on. Warm blanket given. 12:[address] via stretcher. mb9 13:19 Provided Education on: press call light if needing anything. Assisted with bedpan. mb9 13:19 No provider procedures requiring assistance completed. Thermoregulation: warm blanket mb9 given to patient. 14:03 Patient did not have IV access during this emergency room visit. ll1 Administered Medications: 11:52 Drug: HYDROcodone-acetaminophen PO 5 mg-325 mg 1 tabs PO once Route: PO; mb9 14:29 Follow up: Response: No adverse reaction db 11:52 Drug: Diazepam PO 5 mg PO once Route: PO; mb9 14:29 Follow up: Response: No adverse reaction db Medication: 11:55 VIS not applicable for this client. db Outcome: 13:59 Discharge ordered by MD. ms3 14:28 Discharged to home via wheelchair, db 14:28 Condition: stable 14:28 Discharge instructions given to patient, family, Instructed on Prescriptions given X 1, 14:30 Patient left the ED. db Signatures: Lazaro Tobias em1 Estella Kay Lynsay, RN RN ll1 Oseas Ocampo DO DO ms3 Latoya Miguel, RN RN db Vannessa Ewing, RN RN mb9
[2023-08-12 14:37] VITALS: TEMP 97.2
[2023-08-12 15:01] VITALS: BP 140/72; O2SAT 95
== END 2023-08-12 14:30 | disposition home or self-care (01) ==
LOC: ER 11:12
DX: M54.50 Low back pain, unspecified (principal)
CPT/HCPCS: 99285

== ENCOUNTER 2023-08-14 10:17 | Inpatient (IN) | payer OTHER ==
[2023-08-14] MEDS ORDERED: HYDROCODONE/APAP 5/325 MG TAB ONE (11:39)
--- NOTE | 2023-08-14 12:26 | RAD REPORT ---
EXAM DESCRIPTION: MRI - Lumbar Spine Wo Con - 08/14/2023 12:06 pm CLINICAL HISTORY: Low back pain which radiates to right hip COMPARISON: CT 08/09/2023. TECHNIQUE: Sagittal T1-weighted, T2-weighted and T2-STIR weighted sequences were obtained. Axial T1 -weighted and heavily T2-weighted sequenceswere obtained through the lumbar disc levels. FINDINGS: Mild degenerative endplate edema is present at L3-4. There is a fracture at S2 which is minimally displaced. The edema may extend into the sacral wings but this is only partially imaged. . Conus is normal with no clumping or thickening of the cauda equina. T12-L1 level: No significant findings. L1-2 level: Mild broad-based disc bulge and disc height loss. Question or right foraminal disc protru gabrielle which could compress the exiting right L1 nerve root. No significant central spinal stenosis. Mo derate left neural foraminal narrowing. L2-3 level: Mild broad-based disc bulge as well as ligamentum flavum facet hypertrophy results in mil d left greater than right neural foraminal narrowing. No significant central spinal stenosis . L3-4 level: Broad-based disc bulge with ligamentum flavum and facet hypertrophy results in left subar ticular zone stenosis, and moderate left greater than right neural foraminal narrowing. Central spina l stenosis is mild. L4-5 level: Central disc protrusion superimposed upon a mild broad-based disc bulge without significa nt central spinal stenosis. Facet ligamentum flavum hypertrophy is also present. There could be some encroachment on the traversing nerve roots at the level of the subarticular zones. L5-S1 level: Moderate disc height loss with broad-based disc bulge as well as facet ligamentum flavum hypertrophy results in mild bilateral foraminal narrowing. No significant central spinal stenosis. IMPRESSION: 1. Nondisplaced sacral fracture involving S2 and possibly the sacral wings. 2. Multilevel degenerate disc disease. With regard to a right-sided radiculopathy, a combination of f actors including a possible right foraminal disc protrusion is noted at L1-2 with encroachment on the exiting right L1 nerve root. This could explain the patient's symptoms. A small central disc protrus ion is present L4-5 with some contact of the traversing L5 nerve roots but probably not the source of a radiculopathy.
--- NOTE | 2023-08-14 13:51 | EDPHYS ---
Physician Documentation [facility] – [place], [place] Name: Shelley Connor Age: 87 yrs Sex: Female : 1935 Arrival Date: 08/14/2023 Time: : Bed 18 Private MD: ED Physician Oseas Ocampo HPI: 08/13 10:23 This 87 yrs old Female presents to ER via Unassigned with complaints of low back pain. ms3 10:23 87-year-old female presents via [facility] for low back pain began approximately 10 ms3 days ago while doing yard work. EMS notes patient was unable to get out of bed this morning due to pain. Patient denies urinary and bowel incontinence or retention, saddle anesthesia. Patient states pain is located in her lumbar spine.. Historical: - Home Meds: 17:50 Ambien Oral [Active]; Bumetanide 10 mg daily Oral [Active]; fenofibrate 145 mg daily cp4 Oral [Active]; lovastatin 20 mg Oral tab 1 tab once daily [Active]; metoprolol succinate 25 mg Oral Tb24 1 tab once daily [Active]; Synthroid 75 mcg Oral tab 1 tab once daily [Active]; Xarelto 20 mg Oral tab 1 tab once daily [Active]; - PMHx: 10:43 Hypertension; LLE DVT; ll1 - PSHx: 10:43 Appendectomy; hysterectomy; Wrist - Right; ll1 - Immunization history:: Adult Immunizations up to date. - Social history:: Smoking status: Patient denies any tobacco usage or history of. ROS: 10:23 Constitutional: Negative for fever, and chills. Neck: Negative for injury, pain, and ms3 swelling, Cardiovascular: Negative for chest pain, and palpitations. Respiratory: Negative for shortness of breath, cough, wheezing, and pleuritic chest pain, Abdomen/GI: Negative for abdominal pain, nausea, vomiting, diarrhea, and constipation, 10:23 Back: Positive for pain with movement, of the lumbar area, Exam: 10:23 Constitutional: This is a well developed, well nourished patient who is awake, alert, ms3 and in no acute distress. Head/Face: Normocephalic, atraumatic. Neck: Trachea midline, no cervical lymphadenopathy. Supple, full range of motion without nuchal rigidity, or vertebral point tenderness. No Meningismus. Cardiovascular: Regular rate and rhythm with a normal S1 and S2. No gallops, murmurs, or rubs. Normal PMI, no JVD. No pulse deficits. Respiratory: Lungs have equal breath sounds bilaterally, clear to auscultation and percussion. No rales, rhonchi or wheezes noted. No increased work of breathing, no retractions or nasal flaring. Abdomen/GI: Soft, non-tender, with normal bowel sounds. No distension or tympany. No guarding or rebound. No evidence of tenderness throughout. Skin: Warm, dry with normal turgor. Normal color with no rashes, no lesions, and no evidence of cellulitis. 10:23 Back: pain, that is severe, of the lumbar area, Vital Signs: 10:48 BP 161 / 88; Pulse 88; Resp 18; Temp 98; Pulse Ox 96% 2 lpm ; cp4 12:32 BP 101 / 88; Pulse 74; Resp 18; Pulse Ox 97% 2 lpm ; cp4 13:30 BP 135 / 73; Pulse 75; Resp 18; Pulse Ox 98% 2 lpm ; cp4 14:30 BP 151 / 72; Pulse 40; Resp 18; Pulse Ox 98% 2 lpm ; cp4 15:30 BP 135 / 73; Pulse 85; Resp 18; Pulse Ox 98% 2 lpm ; cp4 MDM: 10:22 Patient medically screened. ms3 10:23 Differential diagnosis: Fracture Metastatic Disease Neoplasm Osteoporosis. ms3 12:40 ED course: Discussed consult for inpatient rehab placement. ms3 13:51 Data reviewed: vital signs, nurses notes, lab test result(s), radiologic studies, and ms3 as a result, I will admit patient. Consideration of Admission/Observation Patient was admitted/placed on observation. Management of patient was discussed with the following: Hospitalist: . I considered the following discharge prescriptions or medication management in the emergency department Medications were administered in the Emergency Department. See MAR. Historians other than the Patient: EMS: [facility]. Daughter/Son: Patient's daughter. Care significantly affected by the following chronic conditions: Hypertension. Counseling: I had a detailed discussion with the patient and/or guardian regarding the historical points, exam findings, and any diagnostic results supporting the discharge/admit diagnosis, lab results, radiology results, the need for further work-up and treatment in the hospital. ED course: Discussed observation with patient and her family and they understand and agree with plan. All questions were answered.. 08/13 13:40 Order name: CBC with Diff ms3 08/13 13:40 Order name: BMP ms3 08/13 13:40 Order name: Urinalysis w/ reflexes ms3 08/13 10:23 Order name: MRI Lumbar Spine wo Con; Complete Time: 12:27 ms3 08/13 12:38 Order name: Social Service Consult EDMS 08/13 12:38 Order name: Physical Therapy Consult EDMS 08/13 12:38 Order name: Physical Therapy Consult EDMS Administered Medications: 11:48 Drug: HYDROcodone-acetaminophen PO 5 mg-325 mg 1 tabs PO once Route: PO; cp4 Disposition Summary: 08/14/23 13:51 Hospitalization Ordered Notes: Hospitalization Status: Observation ms3 Provider: Nick Rowe ms3 Condition: Stable ms3 Problem: new ms3 Symptoms: are unchanged ms3 Bed/Room Type: Standard ms3 Location: Telemetry/MedSurg (observation)(08/14/23 17:14) jr12 Room Assignment: 212(08/14/23 17:14) jr Diagnosis - Sacrum fracture ms3 - Back pain ms3 - Degenerative Disc Disease ms3 Forms: - Medication Reconciliation Form ms3 - SBAR form ms3 - Leadership Thank You Letter ms3 Signatures: Dispatcher [employer] EDMI Vipin Leiva RN RN ll1 Oseas Ocampo DO DO ms3 Stephanie Hayden RN RN yue3 Keisha Barney 4 Darby Keane jr12 Corrections: (The following items were deleted from the chart) 10:23 10:23 Lumbar Spine Wo Con+MRI.RAD.BRZ ordered. EDMI EDMI 15:09 13:51 Telemetry/MedSurg (observation) ms3 kb3 15:09 13:51 ms3 kb3 17:14 15:09 [facility] ER HOLD kb3 jr12 17:14 15:09 ERHOLD- kb3 jr12
--- NOTE | 2023-08-14 13:51 | ER ---
Nurse's Notes [facility] Name: Shelley Connor Age: 87 yrs Sex: Female : 1935 Arrival Date: 08/14/2023 Time: 10:17 Bed 18 Private MD: Diagnosis: Sacrum fracture;Back pain;Degenerative Disc Disease Presentation: 08/13 10:48 Chief complaint: EMS states: back pain that has been ongoing for several days. Patient cp4 was here the other day for the same thing. Coronavirus screen: Client denies travel out of the [place] in the last 14 days. At this time, the client does not indicate any symptoms associated with coronavirus-19. Ebola Screen: Patient negative for fever greater than or equal to 101.5 degrees Fahrenheit, and additional compatible Ebola Virus Disease symptoms Patient denies exposure to infectious person. Patient denies travel to an Ebola-affected area in the 21 days before illness onset. No symptoms or risks identified at this time. Initial Sepsis Screen: Does the patient meet any 2 criteria? No. Patient's initial sepsis screen is negative. Does the patient have a suspected source of infection? No. Patient's initial sepsis screen is negative. Risk Assessment: Do you want to hurt yourself or someone else? Patient reports no desire to harm self or others. Onset of symptoms is unknown. 10:48 Method Of Arrival: EMS: [facility] 10:48 Acuity: YANIRA 3 cp4 Triage Assessment: 10:48 General: Appears uncomfortable, Behavior is calm, cooperative, appropriate for age. cp4 Pain: Pain currently is 10 out of 10 on a pain scale. Historical: - Home Meds: 17:50 Ambien Oral [Active]; Bumetanide 10 mg daily Oral [Active]; fenofibrate 145 mg daily cp4 Oral [Active]; lovastatin 20 mg Oral tab 1 tab once daily [Active]; metoprolol succinate 25 mg Oral Tb24 1 tab once daily [Active]; Synthroid 75 mcg Oral tab 1 tab once daily [Active]; Xarelto 20 mg Oral tab 1 tab once daily [Active]; - PMHx: 10:43 Hypertension; LLE DVT; ll1 - PSHx: 10:43 Appendectomy; hysterectomy; Wrist - Right; ll1 - Immunization history:: Adult Immunizations up to date. - Social history:: Smoking status: Patient denies any tobacco usage or history of. Screenin:51 [facility] ED Fall Risk Assessment (Adult) History of falling in the last 3 months, cp4 including since admission No falls in past 3 months (0 pts) Confusion or Disorientation No (0 pts) Intoxicated or Sedated No (0 pts) Impaired Gait No (0 pts) Mobility Assist Device Used No (0 pt) Altered Elimination No (0 pt) Score/Fall Risk Level 0 - 2 = Low Risk Oriented to surroundings, Maintained a safe environment, Assessed \T\ reinforced patient's understanding of fall precautions, Hourly rounding (assess needs \T\ fall precautionary measures) done, Used ambulatory aids as needed (educated on \T\ assisted with). 10:51 Abuse screen: Denies threats or abuse. Nutritional screening: No deficits noted. cp4 Tuberculosis screening: No symptoms or risk factors identified. Assessment: 10:51 Reassessment: No changes from previously documented assessment. cp4 10:51 Musculoskeletal: Reports. cp4 Vital Signs: 10:48 BP 161 / 88; Pulse 88; Resp 18; Temp 98; Pulse Ox 96% 2 lpm ; cp4 12:32 BP 101 / 88; Pulse 74; Resp 18; Pulse Ox 97% 2 lpm ; cp4 13:30 BP 135 / 73; Pulse 75; Resp 18; Pulse Ox 98% 2 lpm ; cp4 14:30 BP 151 / 72; Pulse 40; Resp 18; Pulse Ox 98% 2 lpm ; cp4 15:30 BP 135 / 73; Pulse 85; Resp 18; Pulse Ox 98% 2 lpm ; cp4 ED Course: 10:22 Patient arrived in ED. ms3 10:22 Oseas Ocampo DO is Attending Physician. ms3 10:43 Arm band placed on Patient placed in an exam room, on a stretcher. ll1 10:46 Laisha Penny, KESHIA is Primary Nurse. ph 10:49 Triage completed. cp4 10:51 Bed in low position. Call light in reach. Side rails up X2. cp4 10:51 No provider procedures requiring assistance completed. cp4 11:02 Maintain EMS IV. Dressing intact. Good blood return noted. Site clean \T\ dry. Gauge \T\ cp 4 site: 20G LAC. 11:15 MRI Lumbar Spine wo Con In Process Unspecified. EDMS 12:33 Client placed on continuous cardiac and pulse oximetry monitoring. NIBP monitoring cp4 applied. 12:33 Oxygen administration via nasal cannula \T\ 2L/min. cp4 13:50 Nick Rowe MD is Hospitalizing Provider. ms3 17:47 Urinalysis w/ reflexes Sent. cp4 17:47 BMP Sent. cp4 17:47 CBC with Diff Sent. cp4 17:47 Inserted saline lock: 20 gauge in right antecubital area, using aseptic technique. cp4 Blood collected. intact, bleeding controlled, Pressure dressing applied. 17:48 Provided Education on: admission. cp4 Administered Medications: 11:48 Drug: HYDROcodone-acetaminophen PO 5 mg-325 mg 1 tabs PO once Route: PO; cp4 Medication: 17:51 VIS not applicable for this client. cp4 Outcome: 13:51 Decision to Hospitalize by Provider. ms3 17:48 Admitted to ER Hold. Please see [facility] for further documentation. cp4 17:48 Condition: stable 17:48 Instructed on the need for admit, 18:41 Patient left the ED. cp4 Signatures: Dispatcher [employer] EDLaisha Mendosa RN RN Vipin Meadows RN RN 1 Oseas Ocampo DO DO ms3 Keisha Barney cp4
--- NOTE | 2023-08-14 14:26 | P.HP ---
Certification for Inpatient Patient admitted to: Inpatient With expected LOS: <2 Midnights <Mary Ann Harley - Last Filed: 08/14/23 14:40> Patient History Date of Service: 08/14/23 Reason for admission: Sacrum fracture, immobility History of Present Illness: 87-year-old female with a past medical history of hypertension, left lower extremity DVT. Presents to the emergency room with low back pain. She reports symptoms started greater than 10 days ago. She reports associated decrease in ambulation, unable to ambulate, unable to get out of bed secondary to pain. She reports lumbar sacral pain. Pain is worse with ambulation, pain is better with rest. Reports mild relief with as needed analgesics. She denies urinary or bowel incontinence., No reported saddle anesthesia, plan to admit for sacral fracture, degenerative disc disease, low back pain, immobility MRI of the lumbar spine IMPRESSION: 1. Nondisplaced sacral fracture involving S2 and possibly the sacral wings.2. Multilevel degenerate disc disease. With regard to a right-sided radiculopathy, a combination of factors including a possible right foraminal disc protrusion is noted at L1-2 with encroachment on the exiting right L1 nerve root. This could explain the patient's symptoms. A small central disc protrusion is present L4-5 with some contact of the traversing L5 nerve roots but probably not the source of a radiculopathy - Past Medical/Surgical History -: Hypertension -: Degenerative joint disease -: DVT -: Osteoporosis <Mary Ann Harley - Last Filed: 08/14/23 14:40> Date of Service: 08/14/23 <Nick Rowe - Last Filed: 08/14/23 16:56> Allergies NKDA Allergy (Uncoded 05/20/15 00:39) Unknown No Known Allergies Allergy (Uncoded 11/07/17 11:10) Unknown Home Medications: Bumetanide [Bumex] 1 mg PO DAILY 08/14/23 Cefdinir [Cefdinir*] 300 mg PO BID 08/14/23 Celecoxib [Celebrex] 200 mg PO BID 08/14/23 Ciprofloxacin HCl [Cipro] 250 mg PO BID 08/14/23 Cyclobenzaprine HCl [Flexeril] 5 mg PO TID 08/14/23 Fenofibrate [Tricor] 145 mg PO DAILY 08/14/23 Hydrocodone Bit/Acetaminophen [Hydrocodon-Acetaminophen 5-325] 1 each PO Q4HR 08/14/23 Levothyroxine Sodium [Synthroid] 0.075 mg PO DAILY 08/14/23 Lovastatin [Altoprev] 20 mg PO DAILY 08/14/23 Metoprolol Succinate [Toprol Xl] 25 mg PO DAILY 08/14/23 Rivaroxaban [Xarelto] 20 mg PO DAILY 08/14/23 Zolpidem Tartrate [Ambien] 10 mg PO BEDTIME 08/14/23 Review of Systems per HPI <Mary Ann Harley - Last Filed: 08/14/23 14:40> Physical Examination - Physical Exam General: Alert, In no apparent distress, Oriented x3 HEENT: Atraumatic, Normocephalic Neck: 2+ carotid pulse no bruit, JVD not distended Respiratory: Clear to auscultation bilaterally, Normal air movement Cardiovascular: No edema, Normal pulses Capillary refill: <2 Seconds Gastrointestinal: Normal bowel sounds, Soft and benign Musculoskeletal: Other (Moderate generalized weakness, pain with range of motion, sacral fracture) Integumentary: No rashes, No breakdown Neurological: Normal speech, Abnormal gait <Mary Ann Harley - Last Filed: 08/14/23 14:40> - Studies Laboratory Data (last 24 hrs) 08/14/23 08/14/23 13:40 13:40 WBC Cancelled Hgb Cancelled Hct Cancelled Plt Count Cancelled Sodium Cancelled Potassium Cancelled BUN Cancelled Creatinine Cancelled Glucose Cancelled <Nick Rowe - Last Filed: 08/14/23 16:56> Assessment and Plan - Plan Assessment plan Sacrum fracture Degenerative disc disease immobility Osteoporosis Fall precautions, PT, OT eval, eval for inpatient rehab As needed analgesics, Diet cardiac Full code DVT SCD Disposition inpatient rehab Discharge Plan: Other (Inpatient rehab) - Advance Directives Does patient have a Living Will: No Does patient have a Durable POA for Healthcare: No - Code Status/Comfort Care Code Status: Full Code Critical Care: No Time Spent Managing Pts Care (In Minutes): 55 <Mary Ann Harley - Last Filed: 08/14/23 14:40> - Plan Pt seen and examined. I agree with the note by the HEARING AID TECHNICIAN. Pt is an 87yo female with past medical history of hypertension and left leg DVT who presents with low back pain. The symptoms started 10 days ago and progressively worsened to be associated with inability to ambulate. The low back pain improves with rest. On admission, MRI low back shows non-displaced sacral fracture involving S2 and possibly the sacral wings and multilevel degenerate disc disease with a small central disc protrusion present at L4-5. Pt is interested in going to rehab. At bedside, pt is in NAD. She is unable to lift her leg off the bed or get out of the bed by herself. A/P: Low back pain: Due to non-displaced sacral fracture. Will continue prn pain meds. PT/OT. Pt will need rehab placement. <Nick Rowe - Last Filed: 08/14/23 16:56>
[2023-08-14] MEDS ORDERED: ONDANSETRON 4 MG/2 ML VIAL IV PRN (14:54)
[2023-08-14 15:11] VITALS: BMI 22.6
[2023-08-14 18:05] LABS: Absolute Basophils 0.1 K/uL (0-0.5); Absolute Eosinophils 0.3 K/uL (0-0.5); Absolute Lymphocytes (CBC) 2.2 K/uL (0.7-4.9); Basophils % 0.5 % (0-1.3); Eosinophils % 2.7 % (0-4.4); Hematocrit 42.1 % (36.0-45.0); Hemoglobin 14.3 g/dL (12.0-15.0); Lymphocytes % 19.1 % (15.3-44.8); MCH 31.3 pg (27.0-35.0); MCV 92.2 fL (80-100); MPV 7.4 fL (7.6-11.3); Monocytes % 8.2 % (3.3-12.3); Neutrophils % 69.5 % (41.7-73.7); Nucleated Red Blood Cells % 0.1 % (0-0); Platelets 544 thou/uL (152-406); RBC Red Blood Cell Count 4.57 M/uL (3.86-4.86); Red Cell Distribution Width 13.9 % (12.1-15.2)
[2023-08-14 18:07] LABS: Specific Gravity 1.011 (1.005-1.030); Sqamous Epithelial <5 /HPF (None Seen); Urine Bacteria None Seen /HPF (<20); Urine Bilirubin NEGATIVE (Negative); Urine Blood Negative (Negative); Urine Clarity Turbid (Clear); Urine Color Light-Yellow (Yellow); Urine Culture Reflex Order NOT NEEDED; Urine Glucose NEGATIVE (Negative); Urine Ketones NEGATIVE (Negative); Urine Microscopic Reflex YN ORDER UMIC; Urine Mucus Slight /HPF (None Seen); Urine Nitrite NEGATIVE (Negative); Urine Protein NEGATIVE (Negative); Urine RBC <5 /HPF (None Seen); Urine Urobilinogen Normal (Normal); Urine WBC <5 /HPF (<5); Urine pH 6.5 (5.0-7.0)
[2023-08-14 18:19] LABS: Anion Gap 9.5 mEq/L (5.0-15.0); Potassium 3.5 mEq/L (3.5-5.1)
[2023-08-14] MEDS: TRAMADOL HCL 50 MG TAB PO PRN (19:44)
[2023-08-14] MEDS: CIPROFLOXACIN HCL 250 MG TAB ONE (22:11)
[2023-08-14] MEDS: ZOLPIDEM TARTRATE 10 MG TABLET ONE (22:12)
[2023-08-14] MEDS: CEFDINIR 300 MG CAP PO ONE (22:19)
[2023-08-14] MEDS: ZOLPIDEM TARTRATE 10 MG TABLET PO SCH (22:23)
[2023-08-14] MEDS: CEFDINIR 300 MG CAP PO SCH (22:23)
[2023-08-14] MEDS: CIPROFLOXACIN HCL 250 MG TAB PO SCH (22:24)
[2023-08-15 03:54] LABS: Absolute Basophils 0.1 K/uL (0-0.5); Absolute Eosinophils 0.5 K/uL (0-0.5); Absolute Lymphocytes (CBC) 2.1 K/uL (0.7-4.9); Absolute Neutrophil 6.8 K/uL (1.8-8.0); Basophils % 0.8 % (0-1.3); Eosinophils % 4.6 % (0-4.4); Hematocrit 39.5 % (36.0-45.0); Hemoglobin 13.4 g/dL (12.0-15.0); MCH 31.3 pg (27.0-35.0); MCHC 33.9 g/dL (32.0-36.0); MCV 92.3 fL (80-100); MPV 7.6 fL (7.6-11.3); Monocytes % 9.3 % (3.3-12.3); Neutrophils % 65.3 % (41.7-73.7); Nucleated Red Blood Cells % 0.1 % (0-0); Platelets 507 thou/uL (152-406); RBC Red Blood Cell Count 4.28 M/uL (3.86-4.86); Red Cell Distribution Width 13.6 % (12.1-15.2)
[2023-08-15 04:06] LABS: Anion Gap 7.5 mEq/L (5.0-15.0); Magnesium 2.5 mg/dL (1.6-2.4); Potassium 3.5 mEq/L (3.5-5.1)
[2023-08-15] MEDS: LEVOTHYROXINE SOD 0.075 MG TAB PO SCH (06:32)
--- NOTE | 2023-08-15 08:33 | P.PN ---
Subjective Date of Service: 08/15/23 Chief Complaint: Sacrum fracture, immobility Patient on bedrest, will start physical therapy today,, PT eval Reports constipation, as needed stool softeners added - Physical Exam General: Alert, In no apparent distress, Oriented x3 HEENT: Atraumatic, Normocephalic Neck: 2+ carotid pulse no bruit, JVD not distended Respiratory: Clear to auscultation bilaterally, Normal air movement Cardiovascular: No edema, Normal pulses Capillary refill: <2 Seconds Gastrointestinal: Normal bowel sounds, Soft and benign Musculoskeletal: Other (Moderate generalized weakness, pain with range of motion, sacral fracture) Integumentary: No rashes, No breakdown Neurological: Normal speech, Abnormal gait <Mary Ann Harley - Last Filed: 08/15/23 12:56> Date of Service: 08/15/23 <Amanda Baker - Last Filed: 08/20/23 15:02> Review of Systems per HPI <Mary Ann Harley - Last Filed: 08/15/23 12:56> Physical Examination - Vital Signs Temperature: 97.5 F Blood Pressure: 103/61 Pulse: 85 Respirations: 16 Pulse Ox (%): 93 <Mary Ann Harley - Last Filed: 08/15/23 12:56> Assessment And Plan - Plan Assessment plan Sacrum fracture Intractable pain Degenerative disc disease immobility Osteoporosis Fall precautions, PT, OT eval, eval for inpatient rehab As needed analgesics, Constipation As needed stool softener Good response with stool softener bowel movement 08/12 Leukocytosis Acute cystitis P.o. cefdinir Diet cardiac Full code DVT SCD Disposition discharge plan for inpatient rehab versus snf facility Discharge Plan: Other (Rehab) - Code Status/Comfort Care Code Status: Full Code Critical Care: No Time Spent Managing PTS Care (In Minutes): 35 <Mary Ann Harley - Last Filed: 08/15/23 12:56> Date of Service: 08/15/23 Patient chart was reviewed and patient was seen and examined. Agree with the assessment and plan. Patient presented with fall and suffered a sacral fracture. Patient having a lot of pain on ambulation. Most of the MDM was done by myself and plan of care was discussed with GARTH as well as the patient and family members. Discharge planning being arranged by case management director. <Amanda Baker - Last Filed: 08/20/23 15:02>
[2023-08-15] MEDS: LACTOBACILLUS/ACIDOPHILUS TAB PO SCH (09:21)
[2023-08-15] MEDS: dexAMETHasone 4 MG/ML VIAL IV ONE (09:21)
[2023-08-15] MEDS: POTASSIUM CL SA 10 MEQ TAB PO ONE (09:22)
[2023-08-15] MEDS: ACETAMINOPHEN 500 MG TAB PO PRN (09:23)
[2023-08-15] MEDS: CYCLOBENZAPRINE 10 MG TAB PO PRN (09:23)
[2023-08-15] MEDS: dexAMETHasone 4 MG/ML VIAL IV SCH (11:48)
[2023-08-15] MEDS: MAGNESIUM HYDROXIDE 8% 30 ML PO PRN (11:54)
[2023-08-16 04:09] LABS: Absolute Lymphocytes (CBC) 1.4 K/uL (0.7-4.9); Absolute Monocytes 0.5 K/uL (0.1-1.3); Absolute Neutrophil 7.6 K/uL (1.8-8.0); Basophils % 0.4 % (0-1.3); Eosinophils % 0.1 % (0-4.4); Hematocrit 36.8 % (36.0-45.0); Hemoglobin 12.2 g/dL (12.0-15.0); Lymphocytes % 14.6 % (15.3-44.8); MCH 30.8 pg (27.0-35.0); MCHC 33.1 g/dL (32.0-36.0); MCV 93.1 fL (80-100); MPV 8.1 fL (7.6-11.3); Neutrophils % 79.9 % (41.7-73.7); Platelets 527 thou/uL (152-406); RBC Red Blood Cell Count 3.95 M/uL (3.86-4.86); Red Cell Distribution Width 13.4 % (12.1-15.2)
[2023-08-16 04:11] LABS: Anion Gap 7.7 mEq/L (5.0-15.0); Magnesium 2.8 mg/dL (1.6-2.4); Phosphorus 2.3 mg/dL (2.5-4.9); Potassium 4.7 mEq/L (3.5-5.1)
[2023-08-16] MEDS: POTASS/SODIUM PHOSPHATE 1 PKT POWD.PACK PO SCH (08:16)
[2023-08-16] MEDS: SENOSIDES 8.6 MG TAB PO PRN (15:12)
[2023-08-16] MEDS: LACTOBACILLUS/ACIDOPHILUS TAB PO SCH (16:42)
[2023-08-17 03:56] LABS: Absolute Basophils 0.1 K/uL (0-0.5); Absolute Eosinophils 0.5 K/uL (0-0.5); Absolute Neutrophil 6.5 K/uL (1.8-8.0); Eosinophils % 4.6 % (0-4.4); Hemoglobin 12.7 g/dL (12.0-15.0); MCH 30.9 pg (27.0-35.0); MCHC 33.4 g/dL (32.0-36.0); MCV 92.3 fL (80-100); MPV 7.9 fL (7.6-11.3); Monocytes % 8.9 % (3.3-12.3); Neutrophils % 58.5 % (41.7-73.7); Nucleated Red Blood Cells % 0.2 % (0-0); Platelets 510 thou/uL (152-406); RBC Red Blood Cell Count 4.12 M/uL (3.86-4.86); Red Cell Distribution Width 13.5 % (12.1-15.2)
[2023-08-17 04:07] LABS: Anion Gap 7.2 mEq/L (5.0-15.0); Magnesium 2.6 mg/dL (1.6-2.4); Potassium 4.2 mEq/L (3.5-5.1)
[2023-08-17 06:29] LABS: Phosphorus 3.2 mg/dL (2.5-4.9)
--- NOTE | 2023-08-17 06:36 | P.PN ---
Subjective Date of Service: 08/18/23 Chief Complaint: Sacrum fracture, immobility Ambulated with physical therapy, pain control with as needed analgesia Abdominal x-ray shows ileus, despite stool softeners no reported abdominal - Physical Exam General: Alert, In no apparent distress, Oriented x3 HEENT: Atraumatic, Normocephalic Neck: 2+ carotid pulse no bruit, JVD not distended Respiratory: Clear to auscultation bilaterally, Normal air movement Cardiovascular: No edema, Normal pulses Capillary refill: <2 Seconds Gastrointestinal: Normal bowel sounds, Soft and benign Musculoskeletal: Other (Moderate generalized weakness, pain with range of motion, sacral fracture) Integumentary: No rashes, No breakdown Neurological: Normal speech, Abnormal gait <Mary Ann Harley - Last Filed: 08/18/23 07:38> Date of Service: 08/17/23 <Amanda Baker - Last Filed: 08/20/23 15:09> Review of Systems Per HPI <Mary Ann Harley - Last Filed: 08/18/23 07:38> Physical Examination - Vital Signs Temperature: 96.0 F Blood Pressure: 129/76 Pulse: 89 Respirations: 17 Pulse Ox (%): 92 <Mary Ann Harley - Last Filed: 08/18/23 07:38> Assessment And Plan - Plan Assessment plan Sacrum fracture acute Intractable pain improved Degenerative disc disease chronic immobility acute Osteoporosis: Fall precautions, PT, OT eval, eval for inpatient rehab As needed analgesics, 4/[address] of the head Patchy periventricular and deep white matter hypodensities, most pronounced posteriorly, nonspecific, but suggestive of chronic small vessel ischemic changes. Mastoid air cells and visualized portions of the paranasal sinuses are clear. No acute bony findings. IMPRESSION: No evidence of an acute intracranial process GCS 15 Constipation acute 4/4 Ileus acute As needed stool softener Good response with stool softener bowel movement 08/12 Leukocytosis improved Acute cystitis P.o. cefdinir Microcytic anemia Trend H&H Hemoglobin 11.5, 10.9 11.0, 10 point Transfuse less than Diet cardiac Full code DVT SCD Disposition discharge plan for inpatient rehab versus long term facility Discharge Plan: Other (Rehab) - Code Status/Comfort Care Code Status: Full Code Critical Care: No Time Spent Managing PTS Care (In Minutes): 35 <Mary Ann Harley - Last Filed: 08/18/23 07:38> Date of Service: 08/17/23 Patient chart was reviewed and patient was seen and examined. Agree with the assessment and plan. Patient presented with fall and suffered a sacral fracture. Patient was not able to ambulate today. Will try to get her to ambulate in the morning. She has walked 20 feet with physical therapy so I expect she will be able to ambulate once again, but she was having a large amount of pain. Once again, I discussed the case with GARTH-most of the MDM was done by myself and plan of care was discussed with GARTH as well as the patient and family members(son and [id number]). Discharge planning being arranged by housing case manager-IPR. <Amanda Baker - Last Filed: 08/20/23 15:09>
--- NOTE | 2023-08-17 12:49 | RAD REPORT ---
EXAM DESCRIPTION: RAD - Abdomen W Erect - 08/17/2023 12:30 pm CLINICAL HISTORY: abd pain/constipation Pain COMPARISON: No comparisons FINDINGS: There is generalized gaseous distention of large and small bowel loops seen. Moderate stoo l is retained in the colon. Findings favor diffuse adynamic ileus. No suspicious calcifications. No significant bony findings. IVC filter. IMPRESSION: Findings favor [id number] diffuse adynamic ileus.
--- NOTE | 2023-08-17 13:24 | RAD REPORT ---
EXAM DESCRIPTION: CT - Head Brain Wo Cont - 08/17/2023 12:13 pm CLINICAL HISTORY: aphasia COMPARISON: No comparisons TECHNIQUE: Noncontrast head CT images were obtained without IV contrast. Multiplanar reformats were generated and reviewed. All CT scans are performed using dose optimization technique as appropriate and may include automated exposure control or mA/KV adjustment according to patient size. FINDINGS: No intracranial hemorrhage, mass, or edema. Midline structures are unremarkable. Normal ventricular caliber for age. Pleitez-white matter differentiation is preserved, without evidence of acute infarct. No abnormal extra- axial fluid collections. Patchy periventricular and deep white matter hypodensities, most pronounced posteriorly, nonspecific, but suggestive of chronic small vessel ischemic changes. Mastoid air cells and visualized portions of the paranasal sinuses are clear. No acute bony findings. IMPRESSION: No evidence of an acute intracranial process.
[2023-08-18 03:42] LABS: Absolute Basophils 0.1 K/uL (0-0.5); Absolute Eosinophils 0.4 K/uL (0-0.5); Absolute Lymphocytes (CBC) 2.4 K/uL (0.7-4.9); Absolute Monocytes 1.3 K/uL (0.1-1.3); Absolute Neutrophil 6.8 K/uL (1.8-8.0); Hematocrit 39.1 % (36.0-45.0); Lymphocytes % 21.9 % (15.3-44.8); MCH 31.2 pg (27.0-35.0); MCHC 33.4 g/dL (32.0-36.0); MCV 93.5 fL (80-100); MPV 8.1 fL (7.6-11.3); Monocytes % 11.4 % (3.3-12.3); Neutrophils % 61.7 % (41.7-73.7); Platelets 507 thou/uL (152-406); RBC Red Blood Cell Count 4.18 M/uL (3.86-4.86); Red Cell Distribution Width 13.6 % (12.1-15.2)
[2023-08-18 04:45] LABS: Anion Gap 7.4 mEq/L (5.0-15.0); Magnesium 2.5 mg/dL (1.6-2.4); Potassium 4.4 mEq/L (3.5-5.1)
--- NOTE | 2023-08-18 07:42 | P.PN ---
Subjective Date of Service: 08/18/23 Chief Complaint: Sacrum fracture, immobility Ambulated with physical therapy, pain control with as needed analgesia Abdominal x-ray shows ileus, despite stool softeners no reported abdominal diet changed to n.p.o. repeat KUB in the a.m. - Physical Exam General: Alert, In no apparent distress, Oriented x3 HEENT: Atraumatic, Normocephalic Neck: 2+ carotid pulse no bruit, JVD not distended Respiratory: Clear to auscultation bilaterally, Normal air movement Cardiovascular: No edema, Normal pulses Capillary refill: <2 Seconds Gastrointestinal: Normal bowel sounds, Soft and benign Musculoskeletal: Other (Moderate generalized weakness, pain with range of motion, sacral fracture) Integumentary: No rashes, No breakdown Neurological: Normal speech, Abnormal gait <Mary Ann Harley - Last Filed: 08/18/23 13:03> Date of Service: 08/18/23 <Amanda Baker - Last Filed: 08/20/23 15:25> Review of Systems Per HPI <Mary Ann Harley - Last Filed: 08/18/23 13:03> Physical Examination - Vital Signs Temperature: 96.0 F Blood Pressure: 129/76 Pulse: 89 Respirations: 17 Pulse Ox (%): 92 <Mary Ann Harley - Last Filed: 08/18/23 13:03> Assessment And Plan - Plan Assessment plan Sacrum fracture acute Intractable pain improved Degenerative disc disease chronic immobility acute Osteoporosis: Fall precautions, PT, OT eval, eval for inpatient rehab As needed analgesics, 4/[address] of the head Patchy periventricular and deep white matter hypodensities, most pronounced posteriorly, nonspecific, but suggestive of chronic small vessel ischemic changes. Mastoid air cells and visualized portions of the paranasal sinuses are clear. No acute bony findings. IMPRESSION: No evidence of an acute intracranial process GCS 15 Constipation acute 4/4 Ileus acute As needed stool softener Good response with stool softener bowel movement 08/12 Leukocytosis improved Acute cystitis P.o. cefdinir Microcytic anemia Trend H&H Hemoglobin 11.5, 10.9 11.0, 10 point Transfuse less than Diet cardiac Full code DVT SCD Disposition discharge plan for inpatient rehab versus prison facility Discharge Plan: Other (SNF versus rehab) - Code Status/Comfort Care Code Status: Full Code Critical Care: No Time Spent Managing PTS Care (In Minutes): 30 <Mary Ann Harley - Last Filed: 08/18/23 13:03> - Current Problems (Diagnosis) (1) Sacral fracture Current Visit: Yes Status: Acute (2) Generalized weakness Current Visit: Yes Status: Acute (3) Hypertension Current Visit: Yes Status: Acute Qualifiers: Hypertension type: primary hypertension Qualified Code(s): I10 - Essential (primary) hypertension (4) Osteoarthritis Current Visit: Yes Status: Acute <Amanda Baker - Last Filed: 08/20/23 15:25> Date of Service: 08/18/23 Plan of care as mentioned above above. Patient chart was reviewed and patient was seen and examined. Agree with the assessment and plan. Patient presented with fall and suffered a sacral fracture. Patient ambulated once again with th erapy. Strength is building up. Family is stating that patient has improved. She has walked up to 20 feet with physical therapy so long she is able to push through the pain she should do fine. Once again, I discussed the case with GARTH- most of the MDM was done by myself and plan of care was discussed with GARTH as well as the patient and family members(son and [id number]). Discharge planning being arranged by case checker-IPR. <Amanda Baker - Last Filed: 08/20/23 15:25>
[2023-08-18] MEDS: CEFTRIAXONE 2,000 MG in NA CHLORIDE 0.9% 100 ML IV ONE (09:17)
--- NOTE | 2023-08-18 09:56 | RAD REPORT ---
EXAM DESCRIPTION: RAD - Abdomen 1 View (KUB) - 08/18/2023 9:51 am CLINICAL HISTORY: Abdomen pain FINDINGS: The air within the small bowel has diminished. The small bowel caliber normal. Air and sto ol present throughout the colon. IVC filter in place
[2023-08-18] MEDS ORDERED: FLEET ENEMA ADULT PR PRN (12:58)
[2023-08-18] MEDS: LACTULOSE 20 GM/30 ML UCUP PO ONE (12:59)
[2023-08-18] MEDS: SENOSIDES 8.6 MG TAB PO ONE (13:00)
--- NOTE | 2023-08-19 07:16 | P.PN ---
Subjective Date of Service: 08/19/23 Chief Complaint: Sacrum fracture, immobility Ambulated with physical therapy, pain control with as needed analgesia large BM, tolerating diet, up w PT w assistance daily, family at bedside - Physical Exam General: Alert, In no apparent distress, Oriented x3 HEENT: Atraumatic, Normocephalic Neck: 2+ carotid pulse no bruit, JVD not distended Respiratory: Clear to auscultation bilaterally, Normal air movement Cardiovascular: No edema, Normal pulses Capillary refill: <2 Seconds Gastrointestinal: Normal bowel sounds, Soft and benign Musculoskeletal: Other (Moderate generalized weakness, pain with range of motion, sacral fracture) Integumentary: No rashes, No breakdown Neurological: Normal speech, Abnormal gait <Mary Ann Harley - Last Filed: 08/19/23 10:59> Date of Service: 08/20/23 <Amanda Baker - Last Filed: 08/20/23 15:55> Review of Systems per HPI <Mary Ann Harley - Last Filed: 08/19/23 10:59> Physical Examination - Vital Signs Temperature: 98.0 F Blood Pressure: 113/76 Pulse: 62 Respirations: 16 Pulse Ox (%): 90 <Mary Ann Harley - Last Filed: 08/19/23 10:59> Assessment And Plan - Plan Assessment plan Sacrum fracture acute Intractable pain improved Degenerative disc disease chronic immobility acute Osteoporosis: Fall precautions, PT, OT eval, eval for inpatient rehab As needed analgesics, 4/[address] of the head Patchy periventricular and deep white matter hypodensities, most pronounced posteriorly, nonspecific, but suggestive of chronic small vessel ischemic changes. Mastoid air cells and visualized portions of the paranasal sinuses are clear. No acute bony findings. IMPRESSION: No evidence of an acute intracranial process GCS 15 Constipation acute improved / Ileus acute As needed stool softener Good response with stool softener bowel movement 08/12 tolerating diet Leukocytosis improved Acute cystitis P.o. cefdinir Microcytic anemia Trend H&H Hemoglobin 11.5, 10.9 11.0, 10 point Transfuse less than Diet cardiac Full code DVT SCD Disposition discharge plan for inpatient rehab versus halfway facility Discharge Plan: Shelter - Code Status/Comfort Care Code Status: Full Code Critical Care: No Time Spent Managing PTS Care (In Minutes): 35 <Mary Ann Harley - Last Filed: 08/19/23 10:59> - Current Problems (Diagnosis) (1) Sacral fracture Current Visit: Yes Status: Acute (2) Generalized weakness Current Visit: Yes Status: Acute (3) Hypertension Current Visit: Yes Status: Acute Qualifiers: Hypertension type: primary hypertension Qualified Code(s): I10 - Essential (primary) hypertension (4) Osteoarthritis Current Visit: Yes Status: Acute <Amanda Baker - Last Filed: 08/20/23 15:55> Date of Service: 08/19/23 Patient seen and examined. Agree with plan of care as mentioned above. Patient participated well with physical therapy. Patient ambulated about 30 feet. Patient's family is happy with her improvement. Hoping that patient can get placed into inpatient rehab. If inpatient rehab won't be approved, then they are willing to get her to halfway facility. Continue with current plan of care at this time. Patient chart was reviewed and patient was seen and examined. Agree with the assessment and plan. Most of the MDM was done by myself and plan of care was discussed with GARTH as well as the patient and daughter. Plan to discharge once accepted. <Amanda Baker - Last Filed: 08/20/23 15:55>
[2023-08-20 04:23] LABS: Albumin 2.6 g/dL (3.4-5.0); Anion Gap 6.9 mEq/L (5.0-15.0); Magnesium 2.1 mg/dL (1.6-2.4); Phosphorus 2.2 mg/dL (2.5-4.9); Potassium 3.9 mEq/L (3.5-5.1)
--- NOTE | 2023-08-20 07:01 | P.PN ---
Subjective Date of Service: 08/20/23 Chief Complaint: Sacrum fracture, immobility Ambulated with physical therapy, pain control with as needed analgesia, fall precaution large BM, tolerating diet, up w PT w assistance daily, family at bedside Pending discharge to SNF versus rehab - Physical Exam General: Alert, In no apparent distress, Oriented x3 HEENT: Atraumatic, Normocephalic Neck: 2+ carotid pulse no bruit, JVD not distended Respiratory: Clear to auscultation bilaterally, Normal air movement Cardiovascular: No edema, Normal pulses Capillary refill: <2 Seconds Gastrointestinal: Normal bowel sounds, Soft and benign Musculoskeletal: Other (Moderate generalized weakness, pain with range of motion, sacral fracture) Integumentary: No rashes, No breakdown Neurological: Normal speech, Abnormal gait <Mary Ann Harely - Last Filed: 08/20/23 09:06> Date of Service: 08/20/23 <Amanda Baker - Last Filed: 08/20/23 16:10> Review of Systems per HPI <Mary Ann Harley - Last Filed: 08/20/23 09:06> Physical Examination - Vital Signs Temperature: 97.7 F Blood Pressure: 138/75 Pulse: 96 Respirations: 18 Pulse Ox (%): 92 <Mary Ann Harley - Last Filed: 08/20/23 09:06> Assessment And Plan - Plan Assessment plan Sacrum fracture acute Intractable pain improved Degenerative disc disease chronic immobility acute Osteoporosis: Fall precautions, PT, OT eval, eval for inpatient rehab As needed analgesics, Pending acute patient rehab versus SNF / Difficulty resolved CT of the head Patchy periventricular and deep white matter hypodensities, most pronounced posteriorly, nonspecific, but suggestive of chronic small vessel ischemic changes. Mastoid air cells and visualized portions of the paranasal sinuses are clear. No acute bony findings. IMPRESSION: No evidence of an acute intracranial process GCS 15 Constipation acute improved 08/16 Ileus acute resolved As needed stool softener Good response with stool softener bowel movement 08/12 tolerating diet Leukocytosis improved Acute cystitis P.o. cefdinir Microcytic anemia improved Trend H&H Hemoglobin 11.5, 10.9 12.2, 13.9 Transfuse less than Diet cardiac Full code DVT SCD Disposition discharge plan for inpatient rehab versus alf facility Discharge Plan: Other (Rehab versus SNF) - Code Status/Comfort Care Code Status: Full Code Critical Care: No Time Spent Managing PTS Care (In Minutes): 35 <Mary Ann Harley - Last Filed: 08/20/23 09:06> - Current Problems (Diagnosis) (1) Sacral fracture Current Visit: Yes Status: Acute (2) Generalized weakness Current Visit: Yes Status: Acute (3) Hypertension Current Visit: Yes Status: Acute Qualifiers: Hypertension type: primary hypertension Qualified Code(s): I10 - Essential (primary) hypertension (4) Osteoarthritis Current Visit: Yes Status: Acute <Amanda Baker - Last Filed: 08/20/23 16:10> Date of Service: 08/20/23 Patient seen and examined. Agree with plan of care as mentioned above. Patient to work with nursing staff. Unsure as to if physical therapy available today-wi ll see if we can work with nursing staff. Patient ambulated about 30 feet yesterday. Patient's family is happy with her improvement. Pain is manageable overnight. Hoping that patient can get placed into inpatient rehab. If inpatient rehab won't be approved, then they are willing to get her to alf facility. Continue with current plan of care at this time. Patient chart was reviewed and patient was seen and examined. Agree with the assessment and plan. Most of the MDM was done by myself and plan of care was discussed with GARTH as well as the patient and daughter. Plan to discharge once accepted. <Amanda Baker - Last Filed: 08/20/23 16:10>
[2023-08-20] MEDS: POTASS/SODIUM PHOSPHATE 1 PKT POWD.PACK PO SCH (08:20)
[2023-08-20] MEDS: DOCUSATE NA 100 MG CAP PO PRN (11:28)
--- NOTE | 2023-08-20 15:22 | P.PN ---
Subjective Date of Service: 08/16/23 Patient continues to do slowly improved. Patient is participating with therapy at this time. Working on arrangements for intermediate facility versus inpatient rehab. Case management to discuss with patient regarding plan of care. Review of Systems 10-point ROS is otherwise unremarkable Physical Examination - Vital Signs Temperature: 98.1 F Blood Pressure: 152/90 Pulse: 103 Respirations: 14 Pulse Ox (%): 93 - Physical Exam General: Alert, In no apparent distress, Oriented x3 Respiratory: Clear to auscultation bilaterally, Normal air movement Cardiovascular: Regular rate/rhythm, Normal S1 S2, No murmurs Gastrointestinal: Normal bowel sounds, Soft and benign, Non-distended, No tenderness Musculoskeletal: No clubbing, No swelling, Tenderness (Sacral region) Neurological: Sensation intact, Cranial nerves 3-12 intact - Studies Medications List Reviewed: Yes Assessment & Plan - Problems (Diagnosis) (1) Sacral fracture Current Visit: Yes Status: Acute (2) Generalized weakness Current Visit: Yes Status: Acute (3) Hypertension Current Visit: Yes Status: Acute Qualifiers: Hypertension type: primary hypertension Qualified Code(s): I10 - Essential (primary) hypertension (4) Osteoarthritis Current Visit: Yes Status: Acute - Plan Plan: 1. Sacral fracture; continue with medication for pain control. Continue with physical therapy. Arrange for inpatient rehab. 2. History of hypertension; continue with antihypertensives 3. GI and DVT prophylaxis Discharge Plan: Home Plan to discharge in: 24 Hours - Advance Directives Does patient have a Living Will: No Does patient have a Durable POA for Healthcare: No - Code Status/Comfort Care Code Status: Full Code Critical Care: No Time Spent Managing PTS Care (In Minutes): 35
[2023-08-21 04:14] LABS: Albumin 2.7 g/dL (3.4-5.0); Anion Gap 8.8 mEq/L (5.0-15.0); Magnesium 2.1 mg/dL (1.6-2.4); Phosphorus 2.6 mg/dL (2.5-4.9); Potassium 3.8 mEq/L (3.5-5.1)
[2023-08-21] MEDS: POTASSIUM CL SA 10 MEQ TAB PO ONE (06:05)
--- NOTE | 2023-08-21 08:20 | P.PN ---
Subjective Date of Service: 08/21/23 Chief Complaint: Sacrum fracture, immobility Subjective: Improving (moving more comfortably in bed) <Aracelis Lu - Last Filed: 08/21/23 11:50> Date of Service: 08/21/23 <Nick Rowe Niko - Last Filed: 08/21/23 21:34> Review of Systems 10-point ROS is otherwise unremarkable General: Unremarkable Eyes: Unremarkable ENT: Unremarkable Respiratory: Unremarkable Cardiovascular: Unremarkable Gastrointestinal: Unremarkable Genitourinary: Unremarkable Musculoskeletal: As per HPI Integumentary: Unremarkable Neurological: As per HPI <Aracelis Lulen - Last Filed: 08/21/23 11:50> Physical Examination - Vital Signs Temperature: 97.8 F Blood Pressure: 112/65 Pulse: 100 Respirations: 16 Pulse Ox (%): 92 - Physical Exam General: In no apparent distress, Oriented x3 HEENT: Atraumatic, Normocephalic Neck: Supple, 2+ carotid pulse no bruit Respiratory: Clear to auscultation bilaterally Cardiovascular: No edema, Other (mildly tachycardic) Capillary refill: <2 Seconds Gastrointestinal: Normal bowel sounds, Soft and benign Musculoskeletal: Other (sacral tenderness, no c/o) Integumentary: No rashes Neurological: Normal tone Lymphatics: No axilla or inguinal lymphadenopathy External genitalia: Deferred Rectal: Deferred - Studies Medications List Reviewed: Yes <Araeclis Lu - Last Filed: 08/21/23 11:50> Assessment And Plan - Plan Assessment plan Sacrum fracture acute Intractable pain improved Degenerative disc disease chronic immobility acute Osteoporosis: Fall precautions, PT, OT eval, eval for inpatient rehab As needed analgesics, Pending acute patient rehab versus SNF did some exercises over the weekend, pain improved dramatically /[address] of the head Patchy periventricular and deep white matter hypodensities, most pronounced posteriorly, nonspecific, but suggestive of chronic small vessel ischemic changes. Mastoid air cells and visualized portions of the paranasal sinuses are clear. No acute bony findings. IMPRESSION: No evidence of an acute intracranial process GCS 15 Constipation acute improved 08/16 Ileus acute resolved As needed stool softener Good response with stool softener bowel movement 08/12 tolerating diet no complaints today 08/20 Leukocytosis improved Acute cystitis P.o. cefdinir Microcytic anemia improved - stable at 13 on 08/20 Trend H&H Hemoglobin 11.5, 10.9 12.2, 13.9 Transfuse less than 7 Diet cardiac Full code DVT SCD Disposition discharge plan for inpatient rehab versus custodial facility Discharge Plan: Other (Rehab versus SNF) <Aracelis Lu - Last Filed: 08/21/23 11:50> - Plan Pt seen and examined. I agree with the note by the CORRUGATOR SUPERVISOR. Will continue PT and prn pain meds. Pt will likely dc to SNF of inpatient rehab. <Nick Rowe - Last Filed: 08/21/23 21:34>
[2023-08-22 03:57] LABS: Anion Gap 6.4 mEq/L (5.0-15.0); Potassium 4.4 mEq/L (3.5-5.1)
--- NOTE | 2023-08-22 09:19 | P.PN ---
Subjective Date of Service: 08/22/23 Chief Complaint: Sacrum fracture, immobility Subjective: No new changes, Tolerating diet, Improving <Aracelis Lulen - Last Filed: 08/22/23 09:17> Date of Service: 08/22/23 <Nick Rowe Niko - Last Filed: 08/22/23 13:22> Review of Systems 10-point ROS is otherwise unremarkable Musculoskeletal: As per HPI <LuAracelis Bethea - Last Filed: 08/22/23 09:17> Physical Examination - Vital Signs Temperature: 97.6 F Blood Pressure: 117/66 Pulse: 109 Respirations: 16 Pulse Ox (%): 95 - Physical Exam General: Alert, In no apparent distress, Oriented x3 HEENT: Atraumatic, Normocephalic Neck: Supple, Other Respiratory: Normal air movement Cardiovascular: No edema, Normal pulses, Other (tachycardia) Capillary refill: <2 Seconds Gastrointestinal: Normal bowel sounds, Soft and benign Musculoskeletal: No clubbing, No swelling Integumentary: No breakdown Neurological: Normal speech Lymphatics: No axilla or inguinal lymphadenopathy External genitalia: Deferred Rectal: Deferred - Studies Medications List Reviewed: Yes <Henrietta Luanil Bethea - Last Filed: 08/22/23 09:17> Assessment And Plan - Plan Assessment plan Sacrum fracture acute Intractable pain improved Degenerative disc disease chronic immobility acute Osteoporosis: Fall precautions, PT, OT eval, eval for inpatient rehab As needed analgesics, Pending acute patient rehab versus SNF did some exercises over the weekend, pain improved dramatically / Difficulty resolved CT of the head Patchy periventricular and deep white matter hypodensities, most pronounced posteriorly, nonspecific, but suggestive of chronic small vessel ischemic changes. Mastoid air cells and visualized portions of the paranasal sinuses are clear. No acute bony findings. IMPRESSION: No evidence of an acute intracranial process GCS 15 Constipation acute improved 08/16 Ileus acute resolved As needed stool softener Good response with stool softener bowel movement 08/12 tolerating diet no complaints today 08/20 Leukocytosis improved Acute cystitis P.o. cefdinir Microcytic anemia improved - stable at 13 on 08/20 Trend H&H Hemoglobin 11.5, 10.9 12.2, 13.9 Transfuse less than 7 Diet cardiac Full code DVT SCD Disposition discharge plan for inpatient rehab versus senior living facility Discharge Plan: Other (Rehab versus SNF) <Aracelis Lu - Last Filed: 08/22/23 09:17> - Plan Pt seen and examined. I agree with the note by the QUALITY ASSURANCE LAB TECHNICIAN. Pt is waiting for SNF vs rehab placement. <Nick Rowe - Last Filed: 08/22/23 13:22>
[2023-08-22] MEDS: ZOLPIDEM TARTRATE 10 MG TABLET PO PRN (22:03)
--- NOTE | 2023-08-23 09:38 | P.PN ---
Subjective Date of Service: 08/23/23 Chief Complaint: Sacrum fracture, immobility Subjective: Improving (does complain of burning pain along the lateral aspect of right leg from mid thigh to mid calf) <Aracelis Lu - Last Filed: 08/23/23 09:35> Date of Service: 08/23/23 <Nick Rowe Niko - Last Filed: 08/23/23 12:08> Review of Systems 10-point ROS is otherwise unremarkable General: As per HPI Musculoskeletal: As per HPI <Aracelis Lu - Last Filed: 08/23/23 09:35> Physical Examination - Vital Signs Temperature: 97 F Blood Pressure: 127/63 Pulse: 102 Respirations: 15 Pulse Ox (%): 95 - Physical Exam General: Alert, In no apparent distress, Oriented x3 HEENT: Atraumatic, Normocephalic Neck: 2+ carotid pulse no bruit Respiratory: Normal air movement Cardiovascular: Normal pulses Capillary refill: <2 Seconds Gastrointestinal: Soft and benign Musculoskeletal: No clubbing, No swelling, Other (burning lateral right leg pain) Integumentary: No rashes Neurological: Normal speech, Normal tone Lymphatics: No axilla or inguinal lymphadenopathy External genitalia: Deferred Rectal: Deferred - Studies Medications List Reviewed: Yes <Aracelis Lu - Last Filed: 08/23/23 09:35> Assessment And Plan - Plan Assessment plan Sacrum fracture acute Intractable pain improved Degenerative disc disease chronic immobility acute Osteoporosis: Fall precautions, PT, OT eval, eval for inpatient rehab As needed analgesics, Pending acute patient rehab versus SNF did some exercises over the weekend, pain improved dramatically sacral fracture radiculopathy - gabapentin 200mg po TID prn 08/[address] of the head Patchy periventricular and deep white matter hypodensities, most pronounced posteriorly, nonspecific, but suggestive of chronic small vessel ischemic changes. Mastoid air cells and visualized portions of the paranasal sinuses are clear. No acute bony findings. IMPRESSION: No evidence of an acute intracranial process GCS 15 Constipation acute improved 08/16 Ileus acute resolved As needed stool softener Good response with stool softener bowel movement 08/12 tolerating diet no complaints today 08/20 Leukocytosis improved Acute cystitis P.o. cefdinir Microcytic anemia improved - stable at 13 on 08/20 Trend H&H Hemoglobin 11.5, 10.9 12.2, 13.9 Transfuse less than 7 Diet cardiac Full code DVT SCD Disposition discharge plan for inpatient rehab versus longterm facility Discharge Plan: Other (Rehab versus SNF) <Aracelis Lu - Last Filed: 08/23/23 09:35> - Plan Pt seen and examined. I agree with the note by the FORM SETTER [employer]EL PAN FORMS. Continue PT. Pt did not qualify for inpatient rehab. manager semiconductor is working on SNF placement. <Nick Rowe - Last Filed: 08/23/23 12:08>
[2023-08-23] MEDS: GABAPENTIN 100 MG CAP PO PRN (10:14)
[2023-08-24 03:36] LABS: Absolute Basophils 0.1 K/uL (0-0.5); Absolute Eosinophils 0.5 K/uL (0-0.5); Absolute Lymphocytes (CBC) 1.9 K/uL (0.7-4.9); Absolute Monocytes 1.3 K/uL (0.1-1.3); Absolute Neutrophil 6.9 K/uL (1.8-8.0); Basophils % 0.7 % (0-1.3); Eosinophils % 4.5 % (0-4.4); Hematocrit 35.2 % (36.0-45.0); Lymphocytes % 17.5 % (15.3-44.8); MCH 31.1 pg (27.0-35.0); MCHC 34.1 g/dL (32.0-36.0); MCV 91.5 fL (80-100); MPV 8.9 fL (7.6-11.3); Neutrophils % 65.3 % (41.7-73.7); Nucleated Red Blood Cells % 0.1 % (0-0); Platelets 189 thou/uL (152-406); RBC Red Blood Cell Count 3.85 M/uL (3.86-4.86); Red Cell Distribution Width 13.1 % (12.1-15.2)
[2023-08-24 03:41] LABS: Anion Gap 7.9 mEq/L (5.0-15.0); Potassium 3.9 mEq/L (3.5-5.1)
--- NOTE | 2023-08-24 20:56 | P.PN ---
Subjective Date of Service: 08/24/23 Chief Complaint: Sacrum fracture, immobility Subjective: No new changes, Improving, Working w/ PT <Aracelis Lulen - Last Filed: 08/24/23 20:53> Date of Service: 08/24/23 <Nick Rowe Niko - Last Filed: 08/24/23 22:52> Review of Systems 10-point ROS is otherwise unremarkable Musculoskeletal: As per HPI <Aracelis Lu Lake - Last Filed: 08/24/23 20:53> Physical Examination - Vital Signs Temperature: 96.9 F Blood Pressure: 116/71 Pulse: 110 Respirations: 16 Pulse Ox (%): 93 - Physical Exam General: Alert, In no apparent distress, Oriented x3 HEENT: Atraumatic, Normocephalic Neck: 2+ carotid pulse no bruit Respiratory: Normal air movement Cardiovascular: Normal pulses Capillary refill: <2 Seconds Gastrointestinal: Soft and benign Musculoskeletal: Other (right lateral thigh tender with standing) Neurological: Normal speech, Abnormal strength Lymphatics: No axilla or inguinal lymphadenopathy External genitalia: Deferred Rectal: Deferred - Studies Medications List Reviewed: Yes <Aracelis Lulen - Last Filed: 08/24/23 20:53> Assessment And Plan - Plan Assessment plan Sacrum fracture acute Intractable pain improved Degenerative disc disease chronic immobility acute Osteoporosis: Fall precautions, PT, OT eval, eval for inpatient rehab As needed analgesics, Pending acute patient rehab versus SNF did some exercises over the weekend, pain improved dramatically sacral fracture radiculopathy - gabapentin 200mg po TID prn 08/[address] of the head Patchy periventricular and deep white matter hypodensities, most pronounced posteriorly, nonspecific, but suggestive of chronic small vessel ischemic changes. Mastoid air cells and visualized portions of the paranasal sinuses are clear. No acute bony findings. IMPRESSION: No evidence of an acute intracranial process GCS 15 Constipation acute improved 08/16 Ileus acute resolved As needed stool softener Good response with stool softener bowel movement 08/12 tolerating diet no complaints today 08/23 Leukocytosis improved Acute cystitis P.o. cefdinir Microcytic anemia improved - stable at 13 on 08/20 Trend H&H Hemoglobin 11.5, 10.9 12.2, 13.9 Transfuse less than 7 Diet cardiac Full code DVT SCD Disposition discharge plan for nursing home facility Discharge Plan: Other ( SNF) <Aracelis Lu - Last Filed: 08/24/23 20:53> - Plan Pt seen and examined. I agree with the note by the HAND REAMER. Continue PT. Pt is waiting for placement. <Nick Rowe - Last Filed: 08/24/23 22:52>
--- NOTE | 2023-08-25 12:59 | P.PN ---
Subjective Date of Service: 08/25/23 Chief Complaint: Sacrum fracture, immobility Subjective: No C/O voiced, Working w/ PT (Continue to await approval for [facility]) <Aracelis Lu Lake - Last Filed: 08/25/23 12:54> Date of Service: 08/25/23 <Nick Rowe Nkio - Last Filed: 08/25/23 21:56> Review of Systems 10-point ROS is otherwise unremarkable <Henrietta Luanil Bethea - Last Filed: 08/25/23 12:54> Physical Examination - Vital Signs Temperature: 97.2 F Blood Pressure: 142/79 Pulse: 103 Respirations: 16 Pulse Ox (%): 92 - Physical Exam General: Alert, In no apparent distress, Oriented x3 HEENT: Atraumatic, Normocephalic Neck: JVD not distended Respiratory: Normal air movement Cardiovascular: Normal pulses, Regular rate/rhythm Capillary refill: <2 Seconds Gastrointestinal: Soft and benign Musculoskeletal: No swelling, No contractures, Other (tenderness sacrum, right lateral thigh with standing/ambulation) Neurological: Normal speech, Normal tone, Abnormal strength Lymphatics: No axilla or inguinal lymphadenopathy External genitalia: Deferred Rectal: Deferred - Studies Medications List Reviewed: Yes <Henrietta Luanil Bethea - Last Filed: 08/25/23 12:54> Assessment And Plan - Plan Assessment plan Sacrum fracture acute Intractable pain improved Degenerative disc disease chronic immobility acute Osteoporosis: Fall precautions, PT, OT eval, eval for inpatient rehab As needed analgesics, Pending acute patient rehab versus SNF did some exercises over the weekend, pain improved dramatically sacral fracture radiculopathy - gabapentin 200mg po TID prn 08/[address] of the head Patchy periventricular and deep white matter hypodensities, most pronounced posteriorly, nonspecific, but suggestive of chronic small vessel ischemic changes. Mastoid air cells and visualized portions of the paranasal sinuses are clear. No acute bony findings. IMPRESSION: No evidence of an acute intracranial process GCS 15 Constipation acute improved 08/16 Ileus acute resolved As needed stool softener Good response with stool softener bowel movement 08/12 tolerating diet no complaints today 08/23 Leukocytosis improved Acute cystitis P.o. cefdinir x 7 days - completed Microcytic anemia improved - stable at 13 on 08/20 Trend H&H Hemoglobin 11.5, 10.9 12.2, 13.9 Transfuse less than 7 Diet cardiac Full code DVT SCD Disposition discharge plan for [facility]ci facility, awaiting approval for [facility] Discharge Plan: Other ( SNF) <Aracelis Lu - Last Filed: 08/25/23 12:54> - Plan Pt seen and examined. I agree with the note by the RESOURCE CENTER TEACHER. Will continue PT. She walked more with PT yesterday. Waiting for placement <Nick Rowe - Last Filed: 08/25/23 21:56>
[2023-08-25] MEDS: TRAMADOL HCL 50 MG TAB PO PRN (16:06)
[2023-08-25] MEDS ORDERED: TRAMADOL HCL 50 MG TAB PO SCH (21:00)
[2023-08-26 03:28] LABS: Absolute Basophils 0.1 K/uL (0-0.5); Absolute Eosinophils 0.2 K/uL (0-0.5); Absolute Lymphocytes (CBC) 0.9 K/uL (0.7-4.9); Absolute Neutrophil 8.2 K/uL (1.8-8.0); Basophils % 0.8 % (0-1.3); Eosinophils % 2.3 % (0-4.4); Hemoglobin 12.3 g/dL (12.0-15.0); Lymphocytes % 8.9 % (15.3-44.8); MCH 31.1 pg (27.0-35.0); MCHC 34.1 g/dL (32.0-36.0); MCV 91.3 fL (80-100); MPV 7.5 fL (7.6-11.3); Monocytes % 9.7 % (3.3-12.3); Neutrophils % 78.3 % (41.7-73.7); Platelets 251 thou/uL (152-406); RBC Red Blood Cell Count 3.94 M/uL (3.86-4.86); Red Cell Distribution Width 13.3 % (12.1-15.2)
[2023-08-26 03:43] LABS: Anion Gap 8.5 mEq/L (5.0-15.0); Potassium 4.5 mEq/L (3.5-5.1)
--- NOTE | 2023-08-26 13:40 | P.PN ---
Subjective Date of Service: 08/26/23 Chief Complaint: Sacrum fracture, immobility Subjective: No new changes, Working w/ PT, Other (awaiting - [facility] admission) <Henrietta Luanil Bethea - Last Filed: 08/26/23 13:35> Date of Service: 08/26/23 <Nick Rowe - Last Filed: 08/26/23 21:42> Review of Systems 10-point ROS is otherwise unremarkable Musculoskeletal: As per HPI Neurological: As per HPI <Aracelis Lu - Last Filed: 08/26/23 13:35> Physical Examination - Vital Signs Temperature: 98.6 F Blood Pressure: 146/71 Pulse: 105 Respirations: 18 Pulse Ox (%): 94 - Physical Exam General: Alert, In no apparent distress, Oriented x3 HEENT: Normocephalic Neck: 2+ carotid pulse no bruit Respiratory: Normal air movement Cardiovascular: Normal pulses Capillary refill: <2 Seconds Gastrointestinal: Soft and benign Musculoskeletal: No clubbing, Other (improvement in mobility noted with working with PT) Integumentary: No rashes Neurological: Normal speech Lymphatics: No axilla or inguinal lymphadenopathy External genitalia: Deferred Rectal: Deferred - Studies Medications List Reviewed: Yes <Aracelis Lu - Last Filed: 08/26/23 13:35> Assessment And Plan - Plan Assessment plan Sacrum fracture acute Intractable pain improved Degenerative disc disease chronic immobility acute Osteoporosis: Fall precautions, PT, OT eval, eval for inpatient rehab As needed analgesics, Pending acute patient rehab versus SNF did some exercises over the weekend, pain improved dramatically sacral fracture radiculopathy - gabapentin 200mg po TID prn has been helpful in decreasing pain 4/[address] of the head Patchy periventricular and deep white matter hypodensities, most pronounced posteriorly, nonspecific, but suggestive of chronic small vessel ischemic changes. Mastoid air cells and visualized portions of the paranasal sinuses are clear. No acute bony findings. IMPRESSION: No evidence of an acute intracranial process GCS 15 Constipation acute improved / Ileus acute resolved As needed stool softener Good response with stool softener bowel movement 08/12 tolerating diet no complaints today 08/23, 08/24/08/25 Leukocytosis improved Acute cystitis P.o. cefdinir x 7 days - completed Microcytic anemia improved - stable at 13 on 08/20 Trend H&H Hemoglobin 11.5, 10.9 12.2, 13.9, stable Transfuse less than 7 Diet cardiac Full code DVT SCD Disposition discharge plan for nursing home facility, awaiting approval for [facility] Discharge Plan: Other ( SNF) <Aracelis Lu - Last Filed: 08/26/23 13:35> - Plan Pt seen and examined. I agree with the note by the MATHEMATICAL ENGINEERING TECHNICIAN. Continue PT and prn pain med. <Nick Rowe - Last Filed: 08/26/23 21:42>
[2023-08-26] MEDS: TRAMADOL HCL 50 MG TAB PO SCH (20:48)
[2023-08-27] MEDS: TRAMADOL HCL 50 MG TAB PO ONE (05:19)
[2023-08-27] MEDS: TRAMADOL HCL 50 MG TAB PO PRN (06:41)
--- NOTE | 2023-08-27 15:05 | P.PN ---
Subjective Date of Service: 08/27/23 Chief Complaint: Sacrum fracture, immobility Subjective: No new changes, Tolerating diet, Improving (helped pt to sit at side of bed to eat breakfast, nursing personnel aware and Daughter at beside) <Aracelis Lu - Last Filed: 08/27/23 15:00> Date of Service: 08/27/23 <Nick Rowe - Last Filed: 08/27/23 22:48> Review of Systems 10-point ROS is otherwise unremarkable General: As per HPI Musculoskeletal: As per HPI <Aracelis Lu - Last Filed: 08/27/23 15:00> Physical Examination - Vital Signs Temperature: 97.3 F Blood Pressure: 126/68 Pulse: 98 Respirations: 20 Pulse Ox (%): 92 - Physical Exam General: Alert, In no apparent distress, Oriented x3, Cooperative HEENT: Atraumatic, Normocephalic Neck: JVD not distended Respiratory: Normal air movement Cardiovascular: Normal pulses Capillary refill: <2 Seconds Gastrointestinal: Soft and benign Musculoskeletal: No clubbing, No swelling Integumentary: No rashes Neurological: Normal speech, Other (mild difficulty sitting second to lack of torso strength, assisted with pillows), Abnormal strength Lymphatics: No axilla or inguinal lymphadenopathy External genitalia: Deferred Rectal: Deferred - Studies Medications List Reviewed: Yes <Aracelis Lu - Last Filed: 08/27/23 15:00> Assessment And Plan - Plan Assessment plan Sacrum fracture acute Intractable pain improved Degenerative disc disease chronic immobility acute Osteoporosis: Fall precautions, PT, OT eval, eval for inpatient rehab As needed analgesics, Pending acute patient rehab versus SNF sacral fracture radiculopathy - gabapentin 200mg po TID prn has been helpful in decreasing pain Diet cardiac Full code DVT SCD Disposition discharge plan for alf facility, awaiting approval for [facility] Discharge Plan: Other ( SNF) <Aracelis Lu - Last Filed: 08/27/23 15:00> - Plan Pt seen and examined. I agree with the note by the PLAYERS CLUB REPRESENTATIVE. continue PT. Pt is waiting for SNF placement. <Nick Rowe - Last Filed: 08/27/23 22:48>
[2023-08-28 00:14] VITALS: O2SAT 95
--- NOTE | 2023-08-28 07:40 | P.PN ---
Subjective Date of Service: 08/28/23 Chief Complaint: Sacrum fracture, immobility Ambulated with physical therapy, pain control with as needed analgesia, fall precaution large BM, tolerating diet, up w PT w assistance daily, family at bedside Pending discharge to [facility] - Physical Exam General: Alert, In no apparent distress, Oriented x3 HEENT: Atraumatic, Normocephalic Neck: 2+ carotid pulse no bruit, JVD not distended Respiratory: Clear to auscultation bilaterally, Normal air movement Cardiovascular: No edema, Normal pulses Capillary refill: <2 Seconds Gastrointestinal: Normal bowel sounds, Soft and benign Musculoskeletal: Other (Moderate generalized weakness, pain with range of motio n, sacral fracture) Integumentary: No rashes, No breakdown Neurological: Normal speech, Abnormal gait Review of Systems Per HPI Physical Examination - Vital Signs Temperature: 97.8 F Blood Pressure: 157/74 Pulse: 103 Respirations: 18 Pulse Ox (%): 95 - Studies Medications List Reviewed: Yes Assessment And Plan - Plan Assessment plan Sacrum fracture acute Intractable pain improved Degenerative disc disease chronic immobility acute Osteoporosis: Fall precautions, PT, OT eval, eval for inpatient rehab As needed analgesics, Pending [facility] discharge Slurred speech 4/[address] of the head Patchy periventricular and deep white matter hypodensities, most pronounced posteriorly, nonspecific, but suggestive of chronic small vessel ischemic changes. Mastoid air cells and visualized portions of the paranasal sinuses are clear. No acute bony findings. IMPRESSION: No evidence of an acute intracranial process GCS 15 Constipation acute improved 4/ Ileus acute resolved As needed stool softener Good response with stool softener bowel movement 08/12 tolerating diet Leukocytosis improved Acute cystitis resolved P.o. cefdinir Microcytic anemia improved Trend H&H Hemoglobin 11.5, 10.9 12.2, 13.9 Transfuse less than Diet cardiac Full code DVT SCD Disposition discharge plan for inpatient rehab versus half-way facility Discharge Plan: Half-Way - Code Status/Comfort Care Code Status: Full Code Critical Care: No Time Spent Managing PTS Care (In Minutes): 35
--- NOTE | 2023-08-28 07:46 | P.DS ---
Admission Date: 08/14/23 Discharge Date: 08/30/23 Disposition: [facility] TO [facility] Discharge Condition: FAIR Reason for Admission: Sacrum fracture, immobility Brief History of Present Illness: 87-year-old female with a past medical history of hypertension, left lower extremity DVT. Presents to the emergency room with low back pain. She reports symptoms started greater than 10 days ago. She reports associated decrease in ambulation, unable to ambulate, unable to get out of bed secondary to pain. She reports lumbar sacral pain. Pain is worse with ambulation, pain is better with rest. Reports mild relief with as needed analgesics. She denies urinary or bowel incontinence., No reported saddle anesthesia, plan to admit for sacral fracture, degenerative disc disease, low back pain, immobility MRI of the lumbar spine IMPRESSION: 1. Nondisplaced sacral fracture involving S2 and possibly the sacral wings.2. Multilevel degenerate disc disease. With regard to a right-sided radiculopathy, a combination of factors including a possible right foraminal disc protrusion is noted at L1-2 with encroachment on the exiting right L1 nerve root. This could explain the patient's symptoms. A small central disc protrusion is present L4-5 with some contact of the traversing L5 nerve roots but probably not the source of a radiculopathy - Physical Exam General: Alert, In no apparent distress, Oriented x3 HEENT: Atraumatic, Normocephalic Neck: 2+ carotid pulse no bruit, JVD not distended Respiratory: Clear to auscultation bilaterally, Normal air movement Cardiovascular: No edema, Normal pulses Capillary refill: <2 Seconds Gastrointestinal: Normal bowel sounds, Soft and benign Musculoskeletal: Other (Moderate generalized weakness, pain with range of motion, sacral fracture) Integumentary: No rashes, No breakdown Neurological: Normal speech, Abnormal gait Hospital Course: 87-year-old female with a past medical history of hypertension, left lower extremity DVT. Presents to the emergency room with low back pain. She reported associated decrease in ambulation, unable to ambulate, unable to get out of bed secondary to pain. She reports lumbar sacral pain. Pain is worse with ambulation, pain is better with rest. She denies urinary or bowel incontinence., No reported saddle anesthesia, Ms. Connor was admitted for admit for sacral fracture, degenerative disc disease, low back pain, immobility. Plan to discharge with follow-up with primary care physician, discharged to shelter facility for continued physical therapy. Reports MRI of the lumbar spine IMPRESSION: 1. Nondisplaced sacral fracture involving S2 and possibly the sacral wings.2. Multilevel degenerate disc disease. With regard to a right-sided radiculopathy, a combination of factors including a possible right foraminal disc protrusion is noted at L1-2 with encroachment on the exiting right L1 nerve root. This could explain the patient's symptoms. A small central disc protrusion is present L4-5 with some contact of the traversing L5 nerve roots but probably not the source of a radiculopathy Assessment Nondisplaced sacral fracture improving with PT Multilevel degenerative disc disease right-sided radiculopathy without saddle anesthesia Central disc persistent protrusion L4-L5 generalized weakness improving with PT Was treated with physical therapy, fall precautions, Plan to discharge to shelter facility for continued rehabilitation with fall precautions. Continue home medicines as previously prescribed GOAL: Clear understanding of disease process INSTRUCTIONS: Physician Discharge Instructions: -Follow-up with PCP in 1 to 2 weeks -Please call Dr. Baker at [phone] if any questions regarding hospital stay -Please call nursing station at [phone] if any nursing or medication questions -Return to the emergency room if symptoms worsen Diet: ADA, low sodium Activity: Fall precautions Vital Signs/Physical Exam: Temp Pulse Resp BP Pulse Ox 97.8 F 103 H 18 157/74 H 95 08/28/23 07:40 08/28/23 07:40 08/28/23 07:40 08/28/23 07:40 08/28/23 07:40 Laboratory Data at Discharge: WBC 10.50 thou/uL (4.3-10.9) 08/26/23 03:05 Hgb 12.3 g/dL (12.0-15.0) 08/26/23 03:05 Hct 36.0 % (36.0-45.0) 08/26/23 03:05 Plt Count 251 thou/uL (152-406) 08/26/23 03:05 Sodium 132 mEq/L (136-145) L 08/26/23 03:05 Potassium 4.5 mEq/L (3.5-5.1) 08/26/23 03:05 BUN 15 mg/dL (7-18) 08/26/23 03:05 Creatinine 0.58 mg/dL (0.55-1.02) 08/26/23 03:05 Glucose 113 mg/dL (74-106) H 08/26/23 03:05 Phosphorus 2.6 mg/dL (2.5-4.9) 08/21/23 02:51 Magnesium 2.1 mg/dL (1.6-2.4) 08/21/23 02:51 Home Medications: Celecoxib [Celebrex] 200 mg PO BID 08/14/23 Fenofibrate [Tricor*] 145 mg PO DAILY 08/14/23 Levothyroxine Sodium [Synthroid] 0.075 mg PO DAILY 08/14/23 Lovastatin [Altoprev] 20 mg PO DAILY 08/14/23 Metoprolol Succinate [Toprol Xl*] 25 mg PO DAILY 08/14/23 Rivaroxaban [Xarelto] 20 mg PO DAILY 08/14/23 Bumetanide [Bumex*] 1 mg PO DAILYPRN PRN #10 tab 08/30/23 Cyclobenzaprine [Flexeril*] 5 mg PO TIDP PRN #20 tab 08/30/23 Docusate [Colace Cap*] 100 mg PO DAILY PRN #30 cap 08/30/23 Gabapentin [Neurontin*] 100 mg PO TID PRN #90 cap 08/30/23 Hydrocodone Bit/Acetaminophen [Hydrocodon-Acetaminophen 5-325] 1 each PO Q6HP PRN #20 tab 08/30/23 New Medications: Bumetanide [Bumex*] 1 mg PO DAILYPRN PRN #10 tab PRN Reason: fluid overload/edema Docusate [Colace Cap*] 100 mg PO DAILY PRN #30 cap PRN Reason: CONSTIPATION - 2ND LINE Cyclobenzaprine [Flexeril*] 5 mg PO TIDP PRN #20 tab PRN Reason: Muscle Spasms Hydrocodone Bit/Acetaminophen [Hydrocodon-Acetaminophen 5-325] 1 each PO Q6HP PRN #20 tab PRN Reason: Pain Scale 5-7 (Moderate) Gabapentin [Neurontin*] 100 mg PO TID PRN #90 cap PRN Reason: Pain Scale 5-7 (Moderate) Physician Discharge Instructions: 87-year-old female with a past medical history of hypertension, left lower extremity DVT. Presents to the emergency room with low back pain. She reported associated decrease in ambulation, unable to ambulate, unable to get out of bed secondary to pain. She reports lumbar sacral pain. Pain is worse with ambulation, pain is better with rest. She denies urinary or bowel incontinence., No reported saddle anesthesia, Ms. Connor was admitted for admit for sacral fracture, degenerative disc disease, low back pain, immobility. Plan to discharge with follow-up with primary care physician, discharged to shelter facility for continued physical therapy. Reports MRI of the lumbar spine IMPRESSION: 1. Nondisplaced sacral fracture involving S2 and possibly the sacral wings.2. Multilevel degenerate disc disease. With regard to a right-sided radiculopathy, a combination of factors including a possible right foraminal disc protrusion is noted at L1-2 with encroachment on the exiting right L1 nerve root. This could explain the patient's symptoms. A small central disc protrusion is present L4-5 with some contact of the traversing L5 nerve roots but probably not the source of a radiculopathy Assessment Nondisplaced sacral fracture and Multilevel degenerative disc disease right-sided radiculopathy without saddle anesthesia Central disc persistent protrusion L4-L5 Was treated with physical therapy, fall precautions, Plan to discharge to shelter facility for continued rehabilitation with fall precautions as family is willing to pay out of pocket. Continue home medicines as previously prescribed GOAL: Clear understanding of disease process INSTRUCTIONS: Physician Discharge Instructions: -DC to [place] [facility](family to pay out of pocket) -Follow-up with PCP in 1 to 2 weeks -Please call Dr. Baker at [phone] if any questions regarding hospital stay -Please call nursing station at [phone] if any nursing or medication questions -Return to the emergency room if symptoms worsen Diet: ADA, low sodium Activity: Fall precautions Diet: Low sodium Followup: Jany De Leon [Primary Care Provider] - Time spent managing pt's care (in minutes): 55
--- NOTE | 2023-08-28 11:21 | RAD REPORT ---
EXAM DESCRIPTION: Abel Single View08/28/2023 11:11 am CLINICAL HISTORY: Cough COMPARISON: July 2023 FINDINGS: Calcified granuloma right lung base The lungs appear clear of acute infiltrate. The heart is mildly enlarged IMPRESSION: No acute abnormalities displayed
[2023-08-28 15:23] LABS: Specific Gravity 1.016 (1.005-1.030); Sqamous Epithelial <5 /HPF (None Seen); Urine Bacteria <20 /HPF (<20); Urine Bilirubin NEGATIVE (Negative); Urine Blood Negative (Negative); Urine Clarity Clear (Clear); Urine Color Yellow (Yellow); Urine Culture Reflex Order NOT NEEDED; Urine Glucose NEGATIVE (Negative); Urine Ketones NEGATIVE (Negative); Urine Micro Reflex YN NO BILL MICROSCOPIC; Urine Mucus Slight /HPF (None Seen); Urine Nitrite NEGATIVE (Negative); Urine Protein NEGATIVE (Negative); Urine RBC <5 /HPF (None Seen); Urine Urobilinogen Normal (Normal); Urine WBC <5 /HPF (<5); Urine pH 6.5 (5.0-7.0)
[2023-08-28] MEDS: ENSURE PLANT-BASED PROTEIN CHOCOLATE 330 ML LIQUID PO SCH (20:30)
--- NOTE | 2023-08-29 17:22 | P.PN ---
Subjective Date of Service: 08/29/23 Chief Complaint: Sacrum fracture, immobility Ambulated with physical therapy, pain control with as needed analgesia, fall precaution large BM, tolerating diet, up w PT w assistance daily, family at bedside Pending discharge to [facility] Ambulating daily with physical therapy - Physical Exam General: Alert, In no apparent distress, Oriented x3 HEENT: Atraumatic, Normocephalic Neck: 2+ carotid pulse no bruit, JVD not distended Respiratory: Clear to auscultation bilaterally, Normal air movement Cardiovascular: No edema, Normal pulses Capillary refill: <2 Seconds Gastrointestinal: Normal bowel sounds, Soft and benign Musculoskeletal: Other (Moderate generalized weakness, pain with range of motion, sacral fracture) Integumentary: No rashes, No breakdown Neurological: Normal speech, Abnormal gait Review of Systems Per HPI Physical Examination - Vital Signs Temperature: 97.3 F Blood Pressure: 134/71 Pulse: 105 Respirations: 18 Pulse Ox (%): 97 - Studies Medications List Reviewed: Yes Assessment And Plan - Plan Assessment plan Sacrum fracture acute Intractable pain improved Degenerative disc disease chronic immobility acute Osteoporosis: Fall precautions, PT, OT eval, eval for inpatient rehab As needed analgesics, Pending [facility] discharge Slurred speech 4/[address] of the head Patchy periventricular and deep white matter hypodensities, most pronounced posteriorly, nonspecific, but suggestive of chronic small vessel ischemic changes. Mastoid air cells and visualized portions of the paranasal sinuses are clear. No acute bony findings. IMPRESSION: No evidence of an acute intracranial process GCS 15 Constipation acute improved / Ileus acute resolved As needed stool softener Good response with stool softener bowel movement 08/12 tolerating diet Leukocytosis improved Acute cystitis resolved P.o. cefdinir Microcytic anemia improved Trend H&H Hemoglobin 11.5, 10.9 12.2, 13.9 Transfuse less than Diet cardiac Full code DVT SCD Disposition discharge plan for inpatient rehab versus fpc facility Discharge Plan: Group Home Critical Care: No Time Spent Managing PTS Care (In Minutes): 35
[2023-08-30 04:19] LABS: Albumin 2.4 g/dL (3.4-5.0); Anion Gap 8.9 mEq/L (5.0-15.0); Phosphorus 2.9 mg/dL (2.5-4.9); Potassium 3.9 mEq/L (3.5-5.1)
[2023-08-30] MEDS: POTASSIUM CL SA 10 MEQ TAB PO ONE (08:08)
[2023-08-30 12:08] VITALS: BP 144/76; TEMP 97.6
== END 2023-08-30 15:21 | DRG 552 ==
LOC: ER 10:17 → ERHOLD 14:26 → 2ND 18:21
PROVIDERS: ADMIT Hospitalist; ATTEND Hospitalist
DX: S32.19XA Other fracture of sacrum, initial encounter for closed fracture (principal); K56.7 Ileus, unspecified; N30.00 Acute cystitis without hematuria; R47.01 Aphasia; I10 Essential (primary) hypertension; K59.00 Constipation, unspecified; D50.9 Iron deficiency anemia, unspecified; M81.0 Age-related osteoporosis without current pathological fracture; M51.16 Intervertebral disc disorders with radiculopathy, lumbar region; R47.81 Slurred speech; Z79.01 Long term (current) use of anticoagulants; Z90.49 Acquired absence of other specified parts of digestive tract; Z79.890 Hormone replacement therapy; Z79.899 Other long term (current) drug therapy; Z90.710 Acquired absence of both cervix and uterus; Z86.718 Personal history of other venous thrombosis and embolism
CPT/HCPCS: 36415; 70450; 71045; 72148; 74018; 74019; 80048; 80069; 81001; 82947; 83735; 84100; 85025; 97110; 97116; 97161; 97165; 97530; 99285; J0696; J1100